=== PATIENT | male | born 1965 | race American Indian/Alaskan Native ===

== ENCOUNTER 2016-08-08 06:00 | Emergency (ER) | payer MEDICARE ==
[2016-08-08] MEDS ORDERED: TORADOL ONE (08:04)
[2016-08-08] MEDS ORDERED: DECADRON ONE (08:04)
== END 2016-08-08 08:40 | disposition home or self-care (01) ==
LOC: ED 06:00
DX: M79.642 Pain in left hand (principal); M79.89 Other specified soft tissue disorders; I10 Essential (primary) hypertension; E11.9 Type 2 diabetes mellitus without complications; Z87.39 Personal history of other diseases of the musculoskeletal system and connective tissue
CPT/HCPCS: 99282; J1100; J1885

== ENCOUNTER 2016-11-06 09:56 | Emergency (ER) | payer MEDICARE ==
[2016-11-06 10:09] VITALS: BP 129/86
--- NOTE | 2016-11-06 10:20 | Emergency Department Report ---
Entered by ADRIENNE IZQUIERDO, acting as scribe for AYESHA BARCLAY PA. Chief Complaint: Extremity Problem,Nontraumatic Stated Complaint: GOUT R ELBOW Time Seen by Provider: 11/06/16 10:07 - HPI History of Present Illness: 51 y/o male presents with right elbow pain from gout that started at 0300 this morning. Pt notes eating a steak 2 days ago. 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 PCP is Dr. Patton. - ROS Review of Systems: as noted in HPI - Exam Vital Signs: Vital Signs 11/06/16 10:07 Temperature 97.9 F Pulse Rate 97 H Respiratory 17 Rate Blood Pressure 129/86 O2 Sat by Pulse 96 Oximetry Physical Exam: General: 51 y/o male in no acute distress. Well-developed, well-nourished. CV: Regular rate and rhythm. No murmurs rubs or gallops. Lungs: Clear to auscultation bilaterally. Abdomen: No tenderness to palpation. No guarding or rebound tenderness. Normal bowel sounds. Mini Neuro: Alert and oriented 3. Musculoskeletal: patient had tenderness to the right the elbow with edema, limited ROM due to pain. MSE screening note: Focused history and physical exam performed. Due to findings the following was ordered: ED Medical Decision Making - Medical Decision Making CBC, CMP and uric acid were ordered. - Differential Diagnosis GOUT, PSEUDOGOUT, OSTEAORTHRITIS, CELLULITIS ED Disposition for MSE Condition: Stable This documentation as recorded by the scribe,ADRIENNE IZQUIERDO,accurately reflects the service I personally performed and the decisions made by fl,AYESHA BARCLAY PA.
[2016-11-06 10:56] LABS: Basophils % (Auto) 0.2 % (0.0-1.8); Eosinophils % (Auto) 2.2 % (0.0-4.3); Hematocrit 35.7 % (35.5-45.6); Hemoglobin 12.1 gm/dl (11.8-15.2); Mean Corpuscular HGB Conc 34 % (32-34); Mean Corpuscular Hemoglobin 34 pg (28-32); Mean Corpuscular Volume 100 fl (84-94); Platelet Count 261 K/mm3 (140-440); Red Blood Count 3.59 M/mm3 (3.65-5.03); Red Cell Distribution Width 13.9 % (13.2-15.2); White Blood Count 8.9 K/mm3 (4.5-11.0)
[2016-11-06 11:05] LABS: Alanine Aminotransferase 44 units/L (7-56); Albumin 4.3 g/dL (3.9-5); Albumin/Globulin Ratio 1.3 %; Alkaline Phosphatase 85 units/L (35-129); Anion Gap 21 mmol/L; BUN/Creatinine Ratio 12.72; Blood Urea Nitrogen 14 mg/dL (9-20); Calcium 9.7 mg/dL (8.4-10.2); Carbon Dioxide 18 mmol/L (22-30); Chloride 100.1 mmol/L (98-107); Glucose 129 mg/dL (75-100); Potassium 4.4 mmol/L (3.6-5.0); Sodium 135 mmol/L (137-145); Total Protein 7.7 g/dL (6.3-8.2); Uric Acid 7.5 mg/dL (3.5-7.6)
[2016-11-06] MEDS ORDERED: TORADOL IM ONE (12:00)
--- NOTE | 2016-11-06 12:03 | Emergency Department Report ---
ED General Adult HPI - General Chief complaint: Recheck/Abnormal Lab/Rx Stated complaint: GOUT R ELBOW Time Seen by Provider: 11/06/16 11:59 Source: patient Mode of arrival: Ambulatory Limitations: No Limitations - History of Present Illness Initial comments: 51-year-old known diabetic and hypertensive and gout history comes in with complaint of gout flareup right elbow since 0 300 this morning. Patient complains of the pain is warm to the right elbow denies any injuries. He does admit to having a steak on Saturday on the grill in that she see what elevates his uric acid. Patient reports he did go to his primary care yesterday which is Saturday and had a uric acid test which came 9.2. Patient reports that he is currently taking allopurinol and colchicine as prescribed. - Related Data Home Medications Medication Instructions Recorded Confirmed Last Taken Lisinopril [Zestril TAB] 30 mg PO QDAY 08/18/14 05/04/16 02/08/16 08:00 Previous Rx's Medication Instructions Recorded Last Taken Type Indomethacin Sr (Nf) [Indocin Sr 75 mg PO Q12HR #60 capsule.er 05/12/15 08:00 Rx (Nf)] Colchicine [Colcrys] 0.6 mg PO BID #20 tab 02/09/16 Unknown Rx Propranolol [Inderal] 10 mg PO BID #60 tablet 02/09/16 Unknown Rx amLODIPine [Norvasc] 10 mg PO QDAY #30 tablet 02/09/16 Unknown Rx HYDROcodone/APAP 5-325 [[place] 1 each PO Q6HR PRN #16 tablet 05/04/16 Unknown Rx 5/325] predniSONE [Deltasone] 10 mg PO QDAY #5 tab 06/06/16 Unknown Rx Indomethacin [Indocin] 25 mg PO Q8H #24 capsule 11/06/16 Unknown Rx Prednisone [predniSONE 5 mg (6-Day 5 mg PO .TAPER #1 tab.ds.pk 11/06/16 Unknown Rx Pack, 21 Tabs)] Allergies Allergy/AdvReac Type Severity Reaction Status Date / Time shellfish derived Allergy Rash Verified 11/06/16 10:09 ED Review of Systems ROS: Stated complaint: GOUT R ELBOW Other details as noted in HPI Constitutional: denies: chills, fever Eyes: denies: eye pain, eye discharge, vision change ENT: as per HPI Respiratory: denies: cough, shortness of breath, wheezing Cardiovascular: denies: chest pain, palpitations Endocrine: no symptoms reported Gastrointestinal: denies: abdominal pain, nausea, diarrhea Genitourinary: denies: urgency, dysuria Musculoskeletal: joint swelling (right elbow), arthralgia (right elbow) ED Past Medical Hx - Past Medical History Hx Hypertension: Yes Hx Psychiatric Treatment: Yes (anxiety) Additional medical history: GOUT - Surgical History Additional Surgical History: tonsillectomy - Social History Smoking Status: Never Smoker Substance Use Type: None - Medications Home Medications: Home Medications Medication Instructions Recorded Confirmed Last Taken Type Lisinopril [Zestril TAB] 30 mg PO QDAY 08/18/14 05/04/16 02/08/16 08:00 History Indomethacin Sr (Nf) [Indocin Sr 75 mg PO Q12HR #60 capsule.er 05/12/1501/19/16 08:00 Rx (Nf)] Colchicine [Colcrys] 0.6 mg PO BID #20 tab 02/09/16 05/04/16 Unknown Rx Propranolol [Inderal] 10 mg PO BID #60 tablet 02/09/16 05/04/16 Unknown Rx amLODIPine [Norvasc] 10 mg PO QDAY #30 tablet 02/09/16 05/04/16 Unknown Rx HYDROcodone/APAP 5-325 [[place] 1 each PO Q6HR PRN #16 tablet 05/04/16 Unknown Rx 5/325] predniSONE [Deltasone] 10 mg PO QDAY #5 tab 06/06/16 Unknown Rx Indomethacin [Indocin] 25 mg PO Q8H #24 capsule 11/06/16 Unknown Rx Prednisone [predniSONE 5 mg (6-Day 5 mg PO .TAPER #1 tab.ds.pk 11/06/16 Unknown Rx Pack, 21 Tabs)] ED Physical Exam - General Limitations: No Limitations General appearance: alert, in no apparent distress - Head Head exam: Present: atraumatic, normocephalic - Eye Eye exam: Present: normal appearance - ENT ENT exam: Present: mucous membranes moist - Neck Neck exam: Present: normal inspection - Expanded Upper Extremity Exam Right Elbow exam: Present: tenderness, swelling, erythema, pain w/ pronation/ supination, tenderness over radial head Forearm Wrist exam: Present: normal inspection, full ROM. Absent: tenderness ED Course Vital Signs 11/06/16 10:07 Temperature 97.9 F Pulse Rate 97 H Respiratory 17 Rate Blood Pressure 129/86 O2 Sat by Pulse 96 Oximetry - Reevaluation(s) Reevaluation #1: 11/06/16 12:50 Patient reports that he feels much better from having the Demerol injection and Toradol. ED Medical Decision Making - Lab Data Result diagrams: 11/06/16 10:30 11/06/16 10:30 - Medical Decision Making Patient has been evaluated by this provider fast track. Discussed the patient was given a Toradol injection as well as Solu-Medrol injection for pain relief. Discussed with patient follow up with his primary care provider. In the next 3-5 days. Discussed the patient to continue with the allopurinol in the colchicine as prescribed by his PCP patient verbalized understanding Critical care attestation.: If time is entered above; I have spent that time in minutes in the direct care of this critically ill patient, excluding procedure time. ED Disposition Clinical Impression: Gout attack Qualifiers: Gout site: elbow Gout etiology: unspecified cause Laterality: right Qualified Code(s): M10.9 - Gout, unspecified Disposition: DISCHARGED TO HOME OR SELFCARE Is pt being admited?: No Does the pt Need Aspirin: No Condition: Stable Instructions: Acute Gouty Arthritis (ED) Additional Instructions: Take medication as prescribed. Do not start the steroid until tomorrow. Follow -up which her primary care provider in 3-5 days Prescriptions: Indomethacin [Indocin] 25 mg PO Q8H #24 capsule Prednisone [predniSONE 5 mg (6-Day Pack, 21 Tabs)] 5 mg PO .TAPER #1 tab.ds.pk Referrals: your,provider [Other] - 3-5 Days Forms: Work/School Release Form(ED)
== END 2016-11-06 12:54 | disposition home or self-care (01) ==
LOC: ED 09:56
DX: M10.9 Gout, unspecified (principal); M25.421 Effusion, right elbow; I10 Essential (primary) hypertension; Z91.013 Allergy to seafood
CPT/HCPCS: 36415; 80053; 84550; 85025; 96372; 99283; J1885; J2920

== ENCOUNTER 2016-12-02 07:38 | Emergency (ER) | payer MEDICARE ==
[2016-12-02 07:55] VITALS: BP 122/77
[2016-12-02] MEDS ORDERED: DECADRON IM ONE (10:28)
[2016-12-02] MEDS ORDERED: NORCO 10/325 PO ONE (10:29)
--- NOTE | 2016-12-02 14:00 | Emergency Department Report ---
Entered by SAMEER ROSADO, acting as scribe for UMA MCCRAY PA. ED Lower Extremity HPI - General Chief Complaint: Pain General Stated Complaint: LT KNEE AND RT FOOT PAIN SWELLING Source: patient Mode of arrival: Ambulatory Limitations: Physical Limitation - History of Present Illness Initial Comments: 51 y/o male with a PMHx of anxiety, HTN, chronic back pain, and gout c/o an acute gout flare-up that began 3 days ago. Rates pain a 10/10 in severity. Patient states this acute gout flare-up feels similar to his past gout episodes. Associated symptoms include left knee pain, right foot pain, and swelling, but he denies numbness and tingling. Notes pain worsens with movement , weight bearing, and palpation. Took prescribed Colchacine with no relief. Patient is currently ambulatory with a cane. NKDA. MCCULLOUGH Complaint: other (Acute gout flare-up) Onset/Timin -: days(s) Injury: Knee: Left, Foot: Right Type of Injury: other (Hx of gout) Place: home Severity: severe Severity scale (0 -10): 10 Improves With: nothing Worsens With: weight bearing, movement, palpation Context: other (Hx of gout) Associated Symptoms: swelling (left knee and right foot), able to partially bear weight, ambulatory. denies: numbness, tingling - Related Data Home Medications Medication Instructions Recorded Confirmed Last Taken Lisinopril [Zestril TAB] 30 mg PO QDAY 08/18/14 05/04/16 02/08/16 08:00 Previous Rx's Medication Instructions Recorded Last Taken Type Indomethacin Sr (Nf) [Indocin Sr 75 mg PO Q12HR #60 capsule.er 05/12/15 08:00 Rx (Nf)] Colchicine [Colcrys] 0.6 mg PO BID #20 tab 02/09/16 Unknown Rx Propranolol [Inderal] 10 mg PO BID #60 tablet 02/09/16 Unknown Rx amLODIPine [Norvasc] 10 mg PO QDAY #30 tablet 02/09/16 Unknown Rx HYDROcodone/APAP 5-325 [[place] 1 each PO Q6HR PRN #16 tablet 05/04/16 Unknown Rx 5/325] predniSONE [Deltasone] 10 mg PO QDAY #5 tab 11/30/16 Unknown Rx Indomethacin [Indocin] 25 mg PO Q8H #24 capsule 11/06/16 Unknown Rx Prednisone [predniSONE 5 mg (6-Day 5 mg PO .TAPER #1 tab.ds.pk 11/06/16 Unknown Rx Pack, 21 Tabs)] Colchicine 0.6 mg PO QDAY #20 capsule 12/02/16 Unknown Rx HYDROcodone/APAP 5-325 [[place] 1 each PO Q4HR PRN #12 tablet 12/02/16 Unknown Rx 5/325] Prednisone [predniSONE 10 mg 10 mg PO .TAPER #1 tab.ds.pk 12/02/16 Unknown Rx (6-Day Pack, 21 Tabs)] Allergies Allergy/AdvReac Type Severity Reaction Status Date / Time shellfish derived Allergy Rash Verified 11/06/16 10:09 ED Review of Systems Comment: All other systems reviewed and negative Constitutional: no symptoms reported. denies: chills, fever, other (tingling) Eyes: denies: eye pain, eye discharge, vision change ENT: denies: ear pain, throat pain Respiratory: no symptoms reported. denies: cough, orthopnea, shortness of breath, SOB with exertion, SOB at rest, stridor, wheezing Cardiovascular: denies: chest pain, palpitations, dyspnea on exertion, orthopnea , edema, syncope Endocrine: no symptoms reported Gastrointestinal: denies: abdominal pain, nausea, diarrhea Genitourinary: denies: urgency, dysuria Musculoskeletal: joint swelling (left knee and right foot), arthralgia (left knee and right foot). denies: back pain, myalgia Skin: denies: rash, lesions Neurological: denies: headache, weakness, numbness, paresthesias Psychiatric: denies: anxiety, depression Hematological/Lymphatic: denies: easy bleeding, easy bruising ED Past Medical Hx - Past Medical History Previous Medical History?: Yes Hx Hypertension: Yes Hx Psychiatric Treatment: Yes (anxiety) Additional medical history: GOUT, Chronic back pain - Surgical History Past Surgical History?: Yes Additional Surgical History: tonsillectomy - Social History Smoking Status: Never Smoker Substance Use Type: Alcohol, Prescribed - Medications Home Medications: Home Medications Medication Instructions Recorded Confirmed Last Taken Type Lisinopril [Zestril TAB] 30 mg PO QDAY 08/18/14 05/04/16 02/08/16 08:00 History Indomethacin Sr (Nf) [Indocin Sr 75 mg PO Q12HR #60 capsule.er 05/12/1501/19/16 08:00 Rx (Nf)] Colchicine [Colcrys] 0.6 mg PO BID #20 tab 02/09/16 05/04/16 Unknown Rx Propranolol [Inderal] 10 mg PO BID #60 tablet 02/09/16 05/04/16 Unknown Rx amLODIPine [Norvasc] 10 mg PO QDAY #30 tablet 02/09/16 05/04/16 Unknown Rx HYDROcodone/APAP 5-325 [[place] 1 each PO Q6HR PRN #16 tablet 05/04/16 Unknown Rx 5/325] predniSONE [Deltasone] 10 mg PO QDAY #5 tab 06/06/16 Unknown Rx Indomethacin [Indocin] 25 mg PO Q8H #24 capsule 11/06/16 Unknown Rx Prednisone [predniSONE 5 mg (6-Day 5 mg PO .TAPER #1 tab.ds.pk 11/06/16 Unknown Rx Pack, 21 Tabs)] Colchicine 0.6 mg PO QDAY #20 capsule 12/02/16 Unknown Rx HYDROcodone/APAP 5-325 [[place] 1 each PO Q4HR PRN #12 tablet 12/02/16 Unknown Rx 5/325] Prednisone [predniSONE 10 mg 10 mg PO .TAPER #1 tab.ds.pk 12/02/16 Unknown Rx (6-Day Pack, 21 Tabs)] ED Physical Exam - General Limitations: Physical Limitation General appearance: alert, in no apparent distress - Head Head exam: Present: atraumatic, normocephalic - Eye Eye exam: Present: normal appearance, EOMI Pupils: Present: normal accommodation - ENT ENT exam: Present: normal exam, mucous membranes moist - Neck Neck exam: Present: normal inspection, full ROM. Absent: tenderness, lymphadenopathy - Respiratory Respiratory exam: Present: normal lung sounds bilaterally. Absent: respiratory distress, wheezes, rales, rhonchi, stridor, accessory muscle use, decreased breath sounds - Cardiovascular Cardiovascular Exam: Present: regular rate, normal rhythm, normal heart sounds. Absent: systolic murmur, diastolic murmur, rubs, gallop - GI/Abdominal GI/Abdominal exam: Present: soft, normal bowel sounds - Expanded Lower Extremity Exam Left Hip exam: Present: tenderness, swelling, erythema. Absent: ecchymosis, deformity, crepidus, dislocation, external rotation, internal rotation, shortening Upper Leg exam: Present: normal inspection, full ROM Knee exam: Present: full ROM (limited flexion motion due to left knee pain), tenderness (warm to touch), swelling, erythema, full knee extension. Absent: abrasion, laceration, ecchymosis, deformity, crepidus, dislocation, effusion Lower Leg exam: Present: normal inspection, full ROM Ankle exam: Present: normal inspection, full ROM Foot/Toe exam: Present: normal inspection, full ROM Neuro vascular tendon exam: Present: no vascular compromise. Absent: pulse deficit, abnormal cap refill, motor deficit, sensory deficit, tendon deficit, extremity cold to touch, pallor, abnormal 2-point discrimination Gait: Positive: observed and limited by pain (patient is ambulatory with a cane) Right Hip exam: Present: normal inspection, full ROM Upper Leg exam: Present: normal inspection, full ROM Knee exam: Present: normal inspection, full ROM Lower Leg exam: Present: normal inspection, full ROM Ankle exam: Present: full ROM (limited dorsiflexion and plantar flexion motion due to right foot/ankle pain), tenderness (warm to touch), swelling, erythema. Absent: abrasion, laceration, ecchymosis, deformity, crepidus, dislocation Foot/Toe exam: Present: full ROM (limited dorsiflexion and plantar flexion motion due to right foot/ankle pain), tenderness (right dorsal forefoot tenderness), swelling (mild dorsal forefoot swelling), erythema. Absent: abrasion, laceration, ecchymosis, deformity, crepidus, dislocation, amputation, puncture wound, calcaneal tenderness Neuro vascular tendon exam: Present: no vascular compromise. Absent: pulse deficit, abnormal cap refill, motor deficit, sensory deficit, tendon deficit, extremity cold to touch, pallor, abnormal 2-point discrimination Gait: Positive: observed and limited by pain (patient is ambulatory with a cane) - Back Exam Back exam: Present: normal inspection, full ROM - Neurological Exam Neurological exam: Present: alert, oriented X3 - Psychiatric Psychiatric exam: Present: normal affect, normal mood - Skin Skin exam: Present: warm, dry, intact. Absent: rash ED Course Vital Signs 12/02/16 07:51 Temperature 98.5 F Pulse Rate 109 H Respiratory 20 Rate Blood Pressure 122/77 O2 Sat by Pulse 95 Oximetry ED Disposition Clinical Impression: Gout attack, Medication refill, Gout Disposition: DISCHARGED TO HOME OR SELFCARE Is pt being admited?: No Condition: Stable Instructions: Acute Gouty Arthritis (ED) Prescriptions: Colchicine 0.6 mg PO QDAY #20 capsule HYDROcodone/APAP 5-325 [[place] 5/325] 1 each PO Q4HR PRN #12 tablet PRN Reason: Pain Prednisone [predniSONE 10 mg (6-Day Pack, 21 Tabs)] 10 mg PO .TAPER #1 tab.ds.pk Referrals: PRIMARY CARE,MD [Primary Care Provider] - 3-5 Days This documentation as recorded by the ALONZO kahn JASMINE,accurately reflects the service I personally performed and the decisions made by ,UMA MCCRAY PA.
== END 2016-12-02 11:05 | disposition home or self-care (01) ==
LOC: ED 07:38
DX: M10.9 Gout, unspecified (principal); I10 Essential (primary) hypertension; Z91.013 Allergy to seafood
CPT/HCPCS: 96372; 99282; J1100

== ENCOUNTER 2017-03-09 10:08 | Emergency (ER) | payer MEDICARE ==
[2017-03-09] MEDS ORDERED: ZOFRAN IV ONE (12:36)
[2017-03-09] MEDS ORDERED: MORPHINE IV ONE (12:36)
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
[2017-03-09] MEDS ORDERED: FLEXERIL PO ONE (14:10)
[2017-03-09] MEDS ORDERED: NORCO 10/325 PO ONE (14:10)
[2017-03-09 14:44] VITALS: BP 124/74
== END 2017-03-09 14:44 | disposition left against medical advice (07) ==
LOC: ED 10:08
DX: M54.2 Cervicalgia (principal); R22.1 Localized swelling, mass and lump, neck; I10 Essential (primary) hypertension; F41.9 Anxiety disorder, unspecified; G89.29 Other chronic pain; Z91.013 Allergy to seafood; V59.88XA Occupant (driver) (passenger) of pick-up truck or van injured in other specified transport accidents, initial encounter; Y92.488 Other paved roadways as the place of occurrence of the external cause; Y93.89 Activity, other specified; Y99.8 Other external cause status
CPT/HCPCS: 72040; 99283; J2270; J2405

== ENCOUNTER 2017-08-18 08:12 | Emergency (ER) | payer MEDICARE ==
[2017-08-18 08:22] VITALS: BP 112/79
[2017-08-18] MEDS ORDERED: MORPHINE IM ONE (10:49)
--- NOTE | 2017-08-18 10:57 | Emergency Department Report ---
Chief Complaint: Extremity Injury, Upper Stated Complaint: GOUT LEFT ELBOW Time Seen by Provider: 08/18/17 10:48 - HPI History of Present Illness: Pt is a 52 yo male who presents with pain in his left elbow, left hand , and left knee due to gout. Pt states that he was at [facility] and was treated 2 days ago with Prednisone and Morphine in the Ed . Pt states that he put his prescription in at [facility] but it is closed today and he can't get his meds so he is here for pain medications. - Exam Vital Signs: Vital Signs 08/18/17 08:16 Temperature 98.1 F Pulse Rate 93 H Respiratory 18 Rate Blood Pressure 112/79 O2 Sat by Pulse 96 Oximetry PE: General: awake alert in no acute distress; Ext: l;eft hand with edema, warmth, left elbow with warmth, ; cap refill less than2 sec MSE screening note: Focused history and physical exam performed. Due to findings the following was ordered:pain meds, steroid ED Disposition for MSE Clinical Impression: Gout Disposition: DC- TO HOME OR SELFCARE Is pt being admited?: No Does the pt Need Aspirin: No Condition: Good Instructions: Acute Gouty Arthritis (ED) Prescriptions: Colchicine 0.6 mg PO QDAY #20 capsule Referrals: PRIMARY CARE, [Primary Care Provider] - 3-5 Days Time of Disposition: 11:02
[2017-08-18] MEDS ORDERED: DELTASONE PO ONE (10:59)
== END 2017-08-18 11:28 | disposition home or self-care (01) ==
LOC: ED 08:12
DX: M10.9 Gout, unspecified (principal); Z91.013 Allergy to seafood
CPT/HCPCS: 96372; 99282; J2270; J7512

== ENCOUNTER 2018-02-04 14:10 | Emergency (ER) | payer MEDICARE ==
[2018-02-04 14:16] VITALS: BP 157/93
[2018-02-04] MEDS ORDERED: MOTRIN PO ONE (16:52)
[2018-02-04] MEDS ORDERED: DECADRON IM ONE (16:52)
--- NOTE | 2018-02-04 16:56 | Emergency Department Report ---
ED Lower Extremity HPI - General Chief Complaint: Extremity Injury, Lower Stated Complaint: GOUT Time Seen by Provider: 02/04/18 16:48 Source: patient Mode of arrival: Ambulatory Limitations: No Limitations - History of Present Illness Initial Comments: This is a 52-year-old male nontoxic, well nourished in appearance, no acute signs of distress presents to the ED with c/o of acute on chronic gout of right knee. Patient denies any trauma. Patient denies any numbness, tingling, fever , chills, nausea, vomiting, chest pain, shortness of breath, headache, stiff neck. Patient denies any joint redness. Patient denies decreased range of motion. Patient stated has decreased gait due to pain. Patient denies any allergies. PMH includes gout. PAtient stated he is out of his colchicine medication. -: week(s) (1) Injury: Knee: Right Severity: mild Severity scale (0 -10): 8 Improves With: nothing Worsens With: nothing Associated Symptoms: swelling, able to partially bear weight, ambulatory. denies: snap/pop sensation, numbness, tingling, unable to bear weight - Related Data Home Medications Medication Instructions Recorded Confirmed Last Taken Lisinopril [Zestril TAB] 30 mg PO QDAY 08/18/14 05/04/16 02/08/16 08:00 Previous Rx's Medication Instructions Recorded Last Taken Type Propranolol [Inderal] 10 mg PO BID #60 tablet 02/09/16 Unknown Rx amLODIPine [Norvasc] 10 mg PO QDAY #30 tablet 02/09/16 Unknown Rx HYDROcodone/APAP 5-325 [[place] 1 each PO Q4HR PRN #12 tablet 12/02/16 Unknown Rx 5/325] Prednisone [predniSONE 10 mg 10 mg PO .TAPER #1 tab.ds.pk 12/02/16 Unknown Rx (6-Day Pack, 21 Tabs)] Colchicine 0.6 mg PO QDAY #20 capsule 08/18/17 Unknown Rx Colchicine 0.6 mg PO DAILY #20 capsule 02/04/18 Unknown Rx Ibuprofen [Motrin] 600 mg PO Q8H PRN #30 tablet 02/04/18 Unknown Rx Prednisone [predniSONE 10 mg 10 mg PO .TAPER #1 tab.ds.pk 02/04/18 Unknown Rx (6-Day Pack, 21 Tabs)] Allergies Allergy/AdvReac Type Severity Reaction Status Date / Time shellfish derived Allergy Rash Verified 02/04/18 14:14 ED Review of Systems ROS: Stated complaint: GOUT Other details as noted in HPI Constitutional: denies: chills, fever Eyes: denies: eye pain, eye discharge, vision change ENT: denies: ear pain, throat pain Respiratory: denies: cough, shortness of breath, wheezing Cardiovascular: denies: chest pain, palpitations Endocrine: no symptoms reported Gastrointestinal: denies: abdominal pain, nausea, diarrhea Genitourinary: denies: urgency, dysuria Musculoskeletal: denies: back pain, joint swelling, arthralgia Skin: denies: rash, lesions Neurological: denies: headache, weakness, paresthesias Psychiatric: denies: anxiety, depression Hematological/Lymphatic: denies: easy bleeding, easy bruising ED Past Medical Hx - Past Medical History Hx Hypertension: Yes Hx Diabetes: Yes Hx Kidney Stones: Yes Hx Psychiatric Treatment: Yes (anxiety) Additional medical history: GOUT, Chronic back pain - Surgical History Additional Surgical History: tonsillectomy - Social History Smoking Status: Never Smoker Substance Use Type: None - Medications Home Medications: Home Medications Medication Instructions Recorded Confirmed Last Taken Type Lisinopril [Zestril TAB] 30 mg PO QDAY 08/18/14 05/04/16 02/08/16 08:00 History Propranolol [Inderal] 10 mg PO BID #60 tablet 02/09/16 05/04/16 Unknown Rx amLODIPine [Norvasc] 10 mg PO QDAY #30 tablet 02/09/16 05/04/16 Unknown Rx HYDROcodone/APAP 5-325 [[place] 1 each PO Q4HR PRN #12 tablet 12/02/16 Unknown Rx 5/325] Prednisone [predniSONE 10 mg 10 mg PO .TAPER #1 tab.ds.pk 12/02/16 Unknown Rx (6-Day Pack, 21 Tabs)] Colchicine 0.6 mg PO QDAY #20 capsule 08/18/17 Unknown Rx Colchicine 0.6 mg PO DAILY #20 capsule 02/04/18 Unknown Rx Ibuprofen [Motrin] 600 mg PO Q8H PRN #30 tablet 02/04/18 Unknown Rx Prednisone [predniSONE 10 mg 10 mg PO .TAPER #1 tab.ds.pk 02/04/18 Unknown Rx (6-Day Pack, 21 Tabs)] ED Physical Exam - General Limitations: No Limitations General appearance: alert, in no apparent distress - Head Head exam: Present: atraumatic, normocephalic - Eye Eye exam: Present: normal appearance - ENT ENT exam: Present: mucous membranes moist - Neck Neck exam: Present: normal inspection - Respiratory Respiratory exam: Present: normal lung sounds bilaterally. Absent: respiratory distress - Cardiovascular Cardiovascular Exam: Present: regular rate, normal rhythm. Absent: systolic murmur, diastolic murmur, rubs, gallop - GI/Abdominal GI/Abdominal exam: Present: soft, normal bowel sounds - Rectal Rectal exam: Present: deferred - Extremities Exam Extremities exam: Present: normal inspection, full ROM, tenderness, normal capillary refill. Absent: joint swelling, calf tenderness - Expanded Lower Extremity Exam Right Hip exam: Present: normal inspection, full ROM. Absent: tenderness, swelling Upper Leg exam: Present: normal inspection, full ROM. Absent: tenderness, swelling Knee exam: Present: normal inspection, full ROM, tenderness, swelling, full knee extension. Absent: abrasion, laceration, ecchymosis, deformity, crepidus, dislocation, erythema, effusion, pain w/ pronation/supination, posterior draw sign, pain/laxity with valgus, pain/laxity with varus Lower Leg exam: Present: normal inspection, full ROM. Absent: tenderness, swelling, Jyothi's sign Ankle exam: Present: normal inspection, full ROM. Absent: tenderness, swelling Foot/Toe exam: Present: normal inspection, full ROM. Absent: tenderness, swelling Neuro vascular tendon exam: Present: no vascular compromise. Absent: pulse deficit, abnormal cap refill, motor deficit, sensory deficit, tendon deficit, extremity cold to touch, pallor, abnormal 2-point discrimination, decreased fine /light touch, foot drop, peroneal nerve deficit, significant pain with passive ROM of distal joint Gait: Positive: observed and limited by pain - Back Exam Back exam: Present: normal inspection, full ROM - Neurological Exam Neurological exam: Present: alert, oriented X3 - Psychiatric Psychiatric exam: Present: normal affect, normal mood - Skin Skin exam: Present: warm, dry, intact, normal color. Absent: rash ED Course Vital Signs 02/04/18 14:14 Temperature 97.9 F Pulse Rate 101 H Respiratory 20 Rate Blood Pressure 157/93 O2 Sat by Pulse 96 Oximetry - Reevaluation(s) Reevaluation #1: 02/04/18 16:57 Patient is speaking in full sentences with no signs of distress noted. ED Lower Extremity MDM - Medical Decision Making This is a 52-year-old male that presents with gout. Patient is stable and was examined by me. There is no ecchymosis, no joint redness. Not warm to touch. No signs of cellulites present. Patient received Decadron 10 mg IM. Patient is discharged with colchicine and prednisone. Patient was instructed to RICE therapy. Patient received Motrin for pain. Patient is discharged with Motrin. At time of discharge, the patient does not seem toxic or ill in appearance. No acute signs of distress noted. Patient agrees to discharge treatment plan of care. No further questions noted by the patient. Critical care attestation.: If time is entered above; I have spent that time in minutes in the direct care of this critically ill patient, excluding procedure time. ED Disposition Clinical Impression: Gout flare Qualifiers: Gout site: knee Gout etiology: unspecified cause Laterality: right Qualified Code(s): M10.9 - Gout, unspecified Disposition: DC-01 TO HOME OR SELFCARE Is pt being admited?: No Does the pt Need Aspirin: No Condition: Stable Instructions: Acute Gouty Arthritis (ED) Additional Instructions: Follow-up with a primary care doctor in 3-5 days or if symptoms worsen and continue return to emergency room as soon as possible. Prescriptions: Colchicine 0.6 mg PO DAILY #20 capsule Ibuprofen [Motrin] 600 mg PO Q8H PRN #30 tablet PRN Reason: Pain Prednisone [predniSONE 10 mg (6-Day Pack, 21 Tabs)] 10 mg PO .TAPER #1 tab.ds.pk Referrals: LEIA TIPTON JR, MD [Primary Care Provider] - 3-5 Days PRIMARY CARE, [Referring] - 3-5 Days [facility] [place] [Outside] - 3-5 Days [facility] [Outside] - 3-5 Days Forms: Work/School Release Form(ED)
== END 2018-02-04 19:13 | disposition home or self-care (01) ==
LOC: ED 14:10
DX: M10.061 Idiopathic gout, right knee (principal); I10 Essential (primary) hypertension; E11.9 Type 2 diabetes mellitus without complications; Z87.442 Personal history of urinary calculi; F41.9 Anxiety disorder, unspecified; M54.9 Dorsalgia, unspecified; G89.29 Other chronic pain; Z90.89 Acquired absence of other organs; Z91.013 Allergy to seafood
CPT/HCPCS: 96372; 99282; J1100

== ENCOUNTER 2018-03-08 08:36 | Emergency (ER) | payer MEDICARE ==
[2018-03-08 08:55] VITALS: BP 130/70
[2018-03-08] MEDS ORDERED: DECADRON IM ONE (10:29)
--- NOTE | 2018-03-08 10:36 | Emergency Department Report ---
ED ENT HPI - General Chief complaint: Sore Throat Stated complaint: SWOLLEN THROAT Time Seen by Provider: 03/08/18 10:24 Source: patient Mode of arrival: Ambulatory Limitations: No Limitations - History of Present Illness Initial comments: Patient is a 52-year-old -[place] male past history of sleep apnea snores quite a bit at night who woke up this morning with sensation symptoms In his throat. Patient states he's had uvulitis in the past. Patient feels no pain when he swallows states dysmorphic irritating gagging-type feeling. Patient denies any fevers chills nausea vomiting headache sinus congestion at this time. - Related Data Home Medications Medication Instructions Recorded Confirmed Last Taken Lisinopril [Zestril TAB] 30 mg PO QDAY 08/18/14 05/04/16 02/08/16 08:00 Previous Rx's Medication Instructions Recorded Last Taken Type Propranolol [Inderal] 10 mg PO BID #60 tablet 02/09/16 Unknown Rx amLODIPine [Norvasc] 10 mg PO QDAY #30 tablet 02/09/16 Unknown Rx HYDROcodone/APAP 5-325 [[place] 1 each PO Q4HR PRN #12 tablet 12/02/16 Unknown Rx 5/325] Prednisone [predniSONE 10 mg 10 mg PO .TAPER #1 tab.ds.pk 12/02/16 Unknown Rx (6-Day Pack, 21 Tabs)] Colchicine 0.6 mg PO QDAY #20 capsule 08/18/17 Unknown Rx Colchicine 0.6 mg PO DAILY #20 capsule 02/04/18 Unknown Rx Ibuprofen [Motrin] 600 mg PO Q8H PRN #30 tablet 02/04/18 Unknown Rx Prednisone [predniSONE 10 mg 10 mg PO .TAPER #1 tab.ds.pk 02/04/18 Unknown Rx (6-Day Pack, 21 Tabs)] Azithromycin [Zithromax Z-JESS] 250 mg PO DAILY #6 tablet 03/08/18 Unknown Rx predniSONE [Deltasone] 10 mg PO QDAY #5 tab 03/08/18 Unknown Rx Allergies Allergy/AdvReac Type Severity Reaction Status Date / Time shellfish derived Allergy Rash Verified 02/04/18 14:14 ED Dental HPI - General Chief complaint: Sore Throat Stated complaint: SWOLLEN THROAT Time Seen by Provider: 03/08/18 10:24 Source: patient Mode of arrival: Ambulatory Limitations: No Limitations - Related Data Home Medications Medication Instructions Recorded Confirmed Last Taken Lisinopril [Zestril TAB] 30 mg PO QDAY 08/18/14 05/04/16 02/08/16 08:00 Previous Rx's Medication Instructions Recorded Last Taken Type Propranolol [Inderal] 10 mg PO BID #60 tablet 02/09/16 Unknown Rx amLODIPine [Norvasc] 10 mg PO QDAY #30 tablet 02/09/16 Unknown Rx HYDROcodone/APAP 5-325 [[place] 1 each PO Q4HR PRN #12 tablet 12/02/16 Unknown Rx 5/325] Prednisone [predniSONE 10 mg 10 mg PO .TAPER #1 tab.ds.pk 12/02/16 Unknown Rx (6-Day Pack, 21 Tabs)] Colchicine 0.6 mg PO QDAY #20 capsule 08/18/17 Unknown Rx Colchicine 0.6 mg PO DAILY #20 capsule 02/04/18 Unknown Rx Ibuprofen [Motrin] 600 mg PO Q8H PRN #30 tablet 02/04/18 Unknown Rx Prednisone [predniSONE 10 mg 10 mg PO .TAPER #1 tab.ds.pk 02/04/18 Unknown Rx (6-Day Pack, 21 Tabs)] Azithromycin [Zithromax Z-JESS] 250 mg PO DAILY #6 tablet 03/08/18 Unknown Rx predniSONE [Deltasone] 10 mg PO QDAY #5 tab 03/08/18 Unknown Rx Allergies Allergy/AdvReac Type Severity Reaction Status Date / Time shellfish derived Allergy Rash Verified 02/04/18 14:14 ED Review of Systems ROS: Stated complaint: SWOLLEN THROAT Other details as noted in HPI Comment: All other systems reviewed and negative ED Past Medical Hx - Past Medical History Previous Medical History?: Yes Hx Hypertension: Yes Hx Diabetes: Yes Hx Kidney Stones: Yes Hx Psychiatric Treatment: Yes (anxiety) Additional medical history: GOUT, Chronic back pain, Loud snoring with poss sleep apnea - Surgical History Past Surgical History?: Yes Additional Surgical History: tonsillectomy - Social History Smoking Status: Never Smoker Substance Use Type: Alcohol - Medications Home Medications: Home Medications Medication Instructions Recorded Confirmed Last Taken Type Lisinopril [Zestril TAB] 30 mg PO QDAY 08/18/14 05/04/16 02/08/16 08:00 History Propranolol [Inderal] 10 mg PO BID #60 tablet 02/09/16 05/04/16 Unknown Rx amLODIPine [Norvasc] 10 mg PO QDAY #30 tablet 02/09/16 05/04/16 Unknown Rx HYDROcodone/APAP 5-325 [[place] 1 each PO Q4HR PRN #12 tablet 12/02/16 Unknown Rx 5/325] Prednisone [predniSONE 10 mg 10 mg PO .TAPER #1 tab.ds.pk 12/02/16 Unknown Rx (6-Day Pack, 21 Tabs)] Colchicine 0.6 mg PO QDAY #20 capsule 08/18/17 Unknown Rx Colchicine 0.6 mg PO DAILY #20 capsule 02/04/18 Unknown Rx Ibuprofen [Motrin] 600 mg PO Q8H PRN #30 tablet 02/04/18 Unknown Rx Prednisone [predniSONE 10 mg 10 mg PO .TAPER #1 tab.ds.pk 02/04/18 Unknown Rx (6-Day Pack, 21 Tabs)] Azithromycin [Zithromax Z-JESS] 250 mg PO DAILY #6 tablet 03/08/18 Unknown Rx predniSONE [Deltasone] 10 mg PO QDAY #5 tab 03/08/18 Unknown Rx ED Physical Exam - General Limitations: No Limitations General appearance: alert, in no apparent distress - Head Head exam: Present: atraumatic, normocephalic - Eye Eye exam: Present: normal appearance - ENT ENT exam: Present: mucous membranes moist, other (patient's uvula has some mild edema but is midline there is no tonsillar erythema or exudates present.) - Neck Neck exam: Present: normal inspection - Respiratory Respiratory exam: Present: normal lung sounds bilaterally. Absent: respiratory distress - Cardiovascular Cardiovascular Exam: Present: regular rate, normal rhythm. Absent: systolic murmur, diastolic murmur, rubs, gallop - GI/Abdominal GI/Abdominal exam: Present: soft, normal bowel sounds - Rectal Rectal exam: Present: deferred - Extremities Exam Extremities exam: Present: normal inspection - Back Exam Back exam: Present: normal inspection - Neurological Exam Neurological exam: Present: alert, oriented X3 - Psychiatric Psychiatric exam: Present: normal affect, normal mood - Skin Skin exam: Present: warm, dry, intact, normal color. Absent: rash ED Course Vital Signs 03/08/18 08:51 Temperature 97.6 F Pulse Rate 90 Respiratory 18 Rate Blood Pressure 130/70 O2 Sat by Pulse 96 Oximetry ED Medical Decision Making - Medical Decision Making Patient started on Decadron be discharged home. Critical care attestation.: If time is entered above; I have spent that time in minutes in the direct care of this critically ill patient, excluding procedure time. ED Disposition Clinical Impression: Uvulitis, Sleep apnea Disposition: DC-01 TO HOME OR SELFCARE Is pt being admited?: No Does the pt Need Aspirin: No Condition: Stable Instructions: Uvulitis (ED) Additional Instructions: Please follow up with the included grocery store courtesy clerk who can potentially do a sleep study 40 Referrals: NURA LOYD MD [Staff Physician] - 3-5 Days Time of Disposition: 10:36
== END 2018-03-08 10:44 | disposition home or self-care (01) ==
LOC: ED 08:36
DX: K12.2 Cellulitis and abscess of mouth (principal); G47.30 Sleep apnea, unspecified; I10 Essential (primary) hypertension; E11.9 Type 2 diabetes mellitus without complications; Z87.442 Personal history of urinary calculi; F41.9 Anxiety disorder, unspecified; Z90.89 Acquired absence of other organs; Z91.013 Allergy to seafood
CPT/HCPCS: 96372; 99282; J1100

== ENCOUNTER 2018-03-21 14:50 | Emergency (ER) | payer MEDICARE ==
[2018-03-21 14:59] VITALS: BP 118/71
[2018-03-21] MEDS ORDERED: TORADOL IM ONE (18:04)
[2018-03-21] MEDS ORDERED: NORCO 5/325 PO ONE (18:04)
[2018-03-21] MEDS ORDERED: DECADRON IM ONE (18:04)
--- NOTE | 2018-03-21 18:04 | Emergency Department Report ---
ED Extremity Problem HPI - General Chief complaint: Pain General Stated complaint: GOUT IN BOTH FOOT/BOTH KNEES Time Seen by Provider: 03/21/18 17:26 Source: patient Mode of arrival: Wheelchair Limitations: No Limitations - History of Present Illness Initial comments: This is a 52-year-old male who was been here multiple times for gout flare. He is very noncompliant with his diet. He has been instructed several times regarding diet to prevent gout flareup. He is reported that he drank 12 bottles of Coke yesterday and his gout cleared up again and he is having it to both his feet and kidneys. He reports swelling and pain 04/16 that started. He said he had some colchicine which he took and it helped a little but he still having a lot of pain that is worse with movement and walking. Negative fever or chills. Denies any injury. Patient was last here on 02/04/2018 for similar incident. Patient primary care physician is Dr. Alexy Patton. Complaint: joint swelling, joint paint Onset/Timin -: days(s) Location: bilateral lower extremity, knee (old knees), other History of Same: Yes -: Yes arthralgia, No fever, No associated dyspnea, No associated chest pain Radiation: none Severity scale (0 -10): 10 Quality: aching, constant, other (dropping) Consistency: constant Improves with: medication Worsens with: weight bearing, walking, exertion, palpation Associated Symptoms: arthralgias. denies: chest pain, shortness of breath, fever, myalgias, rash - Related Data Home Medications Medication Instructions Recorded Confirmed Last Taken Lisinopril [Zestril TAB] 30 mg PO QDAY 08/18/14 05/04/16 02/08/16 08:00 Previous Rx's Medication Instructions Recorded Last Taken Type Propranolol [Inderal] 10 mg PO BID #60 tablet 02/09/16 Unknown Rx amLODIPine [Norvasc] 10 mg PO QDAY #30 tablet 02/09/16 Unknown Rx HYDROcodone/APAP 5-325 [[place] 1 each PO Q4HR PRN #12 tablet 12/02/16 Unknown Rx 5/325] Prednisone [predniSONE 10 mg 10 mg PO .TAPER #1 tab.ds.pk 12/02/16 Unknown Rx (6-Day Pack, 21 Tabs)] Colchicine 0.6 mg PO QDAY #20 capsule 08/18/17 Unknown Rx Colchicine 0.6 mg PO DAILY #20 capsule 02/04/18 Unknown Rx Prednisone [predniSONE 10 mg 10 mg PO .TAPER #1 tab.ds.pk 02/04/18 Unknown Rx (6-Day Pack, 21 Tabs)] Azithromycin [Zithromax Z-JESS] 250 mg PO DAILY #6 tablet 03/08/18 Unknown Rx Ibuprofen [Motrin 600 MG tab] 600 mg PO Q8H PRN #30 tablet 03/21/18 Unknown Rx predniSONE [Deltasone] 10 mg PO QDAY #5 tab 03/21/18 Unknown Rx Allergies Allergy/AdvReac Type Severity Reaction Status Date / Time shellfish derived Allergy Rash Verified 02/04/18 14:14 ED Review of Systems ROS: Stated complaint: GOUT IN BOTH FOOT/BOTH KNEES Other details as noted in HPI Constitutional: denies: chills, fever Eyes: denies: vision change Respiratory: denies: cough, shortness of breath, SOB with exertion, SOB at rest , stridor, wheezing Cardiovascular: denies: chest pain, palpitations, edema Gastrointestinal: denies: abdominal pain, nausea, vomiting, diarrhea Musculoskeletal: joint swelling, arthralgia. denies: back pain, myalgia Skin: denies: rash, lesions Neurological: denies: headache, weakness, numbness, paresthesias, confusion, abnormal gait, vertigo ED Past Medical Hx - Past Medical History Previous Medical History?: Yes Hx Hypertension: Yes Hx Diabetes: Yes (borderline) Hx Kidney Stones: Yes Hx Psychiatric Treatment: Yes (anxiety) Additional medical history: GOUT, Chronic back pain, Loud snoring with poss sleep apnea - Surgical History Past Surgical History?: Yes Additional Surgical History: tonsillectomy - Family History Family history: hypertension - Social History Smoking Status: Never Smoker Substance Use Type: None - Medications Home Medications: Home Medications Medication Instructions Recorded Confirmed Last Taken Type Lisinopril [Zestril TAB] 30 mg PO QDAY 08/18/14 05/04/16 02/08/16 08:00 History Propranolol [Inderal] 10 mg PO BID #60 tablet 02/09/16 05/04/16 Unknown Rx amLODIPine [Norvasc] 10 mg PO QDAY #30 tablet 02/09/16 05/04/16 Unknown Rx HYDROcodone/APAP 5-325 [[place] 1 each PO Q4HR PRN #12 tablet 12/02/16 Unknown Rx 5/325] Prednisone [predniSONE 10 mg 10 mg PO .TAPER #1 tab.ds.pk 12/02/16 Unknown Rx (6-Day Pack, 21 Tabs)] Colchicine 0.6 mg PO QDAY #20 capsule 08/18/17 Unknown Rx Colchicine 0.6 mg PO DAILY #20 capsule 02/04/18 Unknown Rx Prednisone [predniSONE 10 mg 10 mg PO .TAPER #1 tab.ds.pk 02/04/18 Unknown Rx (6-Day Pack, 21 Tabs)] Azithromycin [Zithromax Z-JESS] 250 mg PO DAILY #6 tablet 03/08/18 Unknown Rx Ibuprofen [Motrin 600 MG tab] 600 mg PO Q8H PRN #30 tablet 03/21/18 Unknown Rx predniSONE [Deltasone] 10 mg PO QDAY #5 tab 03/21/18 Unknown Rx ED Physical Exam - General Limitations: No Limitations General appearance: alert, in no apparent distress - Head Head exam: Present: atraumatic, normocephalic, normal inspection - Eye Eye exam: Present: normal appearance, PERRL, EOMI Pupils: Present: normal accommodation - ENT ENT exam: Present: normal exam, normal orophraynx, mucous membranes moist - Neck Neck exam: Present: normal inspection, full ROM. Absent: tenderness, lymphadenopathy - Respiratory Respiratory exam: Present: normal lung sounds bilaterally. Absent: respiratory distress, chest wall tenderness - Cardiovascular Cardiovascular Exam: Present: normal rhythm, tachycardia, normal heart sounds. Absent: systolic murmur, diastolic murmur - GI/Abdominal GI/Abdominal exam: Present: soft, normal bowel sounds. Absent: distended, tenderness - Extremities Exam Extremities exam: Present: normal inspection, full ROM, tenderness (tentative palpate to dorsal aspect of both feet more alongside great toe and to both knee. Temperature warm to both feet and knee without any erythema.), normal capillary refill, pedal edema (both feet from gout), joint swelling (both knees anteriorly. no Ballottement. No crepitus), other (No cce. + 2 pulses in all extremities, no neurovascular compromise except he has swelling to both knees without any signs of ligament injury. He also has swelling to both feet alongside his great toe laterally but no erythema noted. Bilateral legs and thighs with normal exam.). Absent: calf tenderness - Back Exam Back exam: Present: normal inspection, full ROM, other (ambulates without any difficulties). Absent: tenderness, CVA tenderness (R), CVA tenderness (L), muscle spasm, paraspinal tenderness, vertebral tenderness, rash noted - Neurological Exam Neurological exam: Present: alert, oriented X3, normal gait, reflexes normal. Absent: motor sensory deficit - Psychiatric Psychiatric exam: Present: normal affect, normal mood - Skin Skin exam: Present: warm, dry, intact, normal color. Absent: rash ED Course Vital Signs 03/21/18 03/21/18 14:55 19:05 Temperature 98.6 F Pulse Rate 117 H 92 H Respiratory 16 Rate Blood Pressure 118/71 O2 Sat by Pulse 97 Oximetry - Reevaluation(s) Reevaluation #1: 03/21/18 19:56 Patient given Decadron 10 mg IM and Toradol 60 mg IM for gout flare and he voiced relief of pain down to 3/10. ED Medical Decision Making - Medical Decision Making This is a 52-year-old male who has been noncompliant with his diet and also diet to prevent gout. He said he drank 12 small bottles of Coke yesterday and he started having gout flare up. Patient has a primary care physician who is Dr. Alexy Patton that manage his gout and high blood pressure. Assessment/plan 1: Acute gouty arthritis attack, multiple sites-patient given an Decadron 10 mg IM and Toradol 60 mg IM and he voiced relief of pain down to 3 out of 10. 2: Arthralgia multiple sites-better with medication. Patient will be discharged home on prednisone dosepak and Motrin and he has Colcrys at home that he had from previous gout attacks. Discussed the patient as diagnosis, medication and treatment plan. I reinforced that he needs to stop eating foods that time period ended he needs to read discharge instruction paperwork regarding that is going.. Patient's that he will be following up with his primary care doctor on Saturday. Patient said he understands that he has to stop eating food that triggers his gout but sometimes he just cannot help it. Patient is stable upon discharge with decrease in pain, vital signs stable afebrile and discharged home with prescription for prednisone dosepak and Motrin. He is to follow-up with Dr. Alexy Patton on 03/24/2018 and he voiced understanding. Critical care attestation.: If time is entered above; I have spent that time in minutes in the direct care of this critically ill patient, excluding procedure time. ED Disposition Clinical Impression: Arthralgia of multiple sites, bilateral Gout attack Qualifiers: Gout site: multiple sites Gout etiology: unspecified cause Qualified Code(s): M10.9 - Gout, unspecified Disposition: TO HOME OR SELFCARE Is pt being admited?: No Does the pt Need Aspirin: No Condition: Stable Instructions: Low Purine Diet (ED), Acute Gouty Arthritis (ED), Arthralgia (ED) Additional Instructions: Please see discharge instruction on low. Diet that you have been given several times. Please follow up via primary care physician on Saturday. Take your Colcrys that you have at home as previously instructed Take Motrin and prednisone Dosepak for gout flareup. Increasing her fluid intake. If your symptoms worsens, return to the emergency room Prescriptions: Ibuprofen [Motrin 600 MG tab] 600 mg PO Q8H PRN #30 tablet PRN Reason: Pain predniSONE [Deltasone] 10 mg PO QDAY #5 tab Referrals: PRIMARY CARE, [Primary Care Provider] - 03/24/18 Forms: Work/School Release Form(ED)
== END 2018-03-21 20:04 | disposition home or self-care (01) ==
LOC: ED 14:50
DX: M10.9 Gout, unspecified (principal); M25.50 Pain in unspecified joint; I10 Essential (primary) hypertension; F41.9 Anxiety disorder, unspecified; G47.30 Sleep apnea, unspecified; Z87.442 Personal history of urinary calculi; Z90.89 Acquired absence of other organs; Z91.013 Allergy to seafood; Z79.899 Other long term (current) drug therapy
CPT/HCPCS: 96372; 99282; J1100; J1885

== ENCOUNTER 2018-12-03 04:16 | Emergency (ER) | payer MEDICARE ==
[2018-12-03] MEDS ORDERED: DECADRON IM ONE (07:15)
[2018-12-03] MEDS ORDERED: NORCO 7.5/325 PO ONE (07:15)
--- NOTE | 2018-12-03 07:43 | Emergency Department Report ---
HPI - General Chief Complaint: Extremity Problem,Nontraumatic Time Seen by Provider: 12/03/18 07:14 - HPI HPI: Patient is a very pleasant 53-year-old -[place] male who comes to the ER today complaining of gout pain in his right knee. This is acute on chronic gout pain. He is on colchicine and allopurinol but that is not helping. He is out of his prednisone. He usually follows with his primary care but could not get in. Patient denies any trauma. Patient's ambulatory on the knee. ED Past Medical Hx - Past Medical History Previous Medical History?: Yes Hx Hypertension: Yes Hx Diabetes: Yes (borderline) Hx Kidney Stones: Yes Hx Psychiatric Treatment: Yes (anxiety) Additional medical history: GOUT, Chronic back pain, Loud snoring with poss sleep apnea - Surgical History Past Surgical History?: No Additional Surgical History: tonsillectomy - Family History Family history: no significant - Social History Smoking Status: Never Smoker Substance Use Type: None - Medications Home Medications: Home Medications Medication Instructions Recorded Confirmed Last Taken Type Lisinopril [Zestril TAB] 30 mg PO QDAY 08/18/14 05/04/16 02/08/16 08:00 History Propranolol [Inderal] 10 mg PO BID #60 tablet 02/09/16 05/04/16 Unknown Rx amLODIPine [Norvasc] 10 mg PO QDAY #30 tablet 02/09/16 05/04/16 Unknown Rx Colchicine 0.6 mg PO DAILY #20 capsule 02/04/18 Unknown Rx Naproxen [Naprosyn] 500 mg PO BID PRN #20 tablet 12/03/18 Unknown Rx predniSONE [Deltasone] 20 mg PO DAILY #5 tablet 12/03/18 Unknown Rx ED Review of Systems ROS: Stated complaint: GOUT BOTH KNEES Other details as noted in HPI Comment: All other systems reviewed and negative Physical Exam - Physical Exam Vital Signs: Vital Signs 12/03/18 12/03/18 04:19 07:35 Temperature 97.7 F Pulse Rate 91 H Respiratory 18 18 Rate Blood Pressure 115/69 O2 Sat by Pulse 97 Oximetry Physical Exam: Pt is awake alert and oriented. There is no focal neuro deficit. Patient is ambulatory and moves all extremities well. S1-S2 no murmur or bruit or rub Lungs clear to auscultation Abdomen soft nontender No CVA tenderness affect and mood appropriate Right knee with mild swelling and redness. No concern for infection for there is no portal, abrasion or wound. There is no effusion. There is no cyst behind the knee. Patient has full range of motion of the knee. He can extend and flex the knee. He is ambulatory. Distal extremity is warm. He has got +2 DP pulses. ED Course Vital Signs 12/03/18 12/03/18 04:19 07:35 Temperature 97.7 F Pulse Rate 91 H Respiratory 18 18 Rate Blood Pressure 115/69 O2 Sat by Pulse 97 Oximetry ED Medical Decision Making - Medical Decision Making Patient suffers with acute on chronic gout pain. Today his pain is of his right knee. He is taking his allopurinol and colchicine but it is not working. He is out of his prednisone. There is been no trauma to suggest other injury of the knee. Patient does have arthritis in the knee and is undergoing a knee replacement this summer. Patient was medicated in the ER for pain and will be sent home on prednisone. Patient has been instructed to follow-up with his primary care doctor. Vital Signs 12/03/18 12/03/18 04:19 07:35 Temperature 97.7 F Pulse Rate 91 H Respiratory 18 18 Rate Blood Pressure 115/69 O2 Sat by Pulse 97 Oximetry Critical care attestation.: If time is entered above; I have spent that time in minutes in the direct care of this critically ill patient, excluding procedure time. ED Disposition Clinical Impression: Gout Disposition: PAT REG,NO TRIAGE Is pt being admited?: No Condition: Stable Instructions: Acute Gouty Arthritis (ED) Additional Instructions: DIET TOLERATED MEDS ORDERED TODAY IN ER FOLLOW INSTRUCTIONS ON THE BOTTLE FOLLOW UP PCP WITHIN 48 HOURS TO ENSURE YOU ARE GETTING BETTER ACTIVITY TOLERATED MOTRIN OR TYLENOL FOR PAIN OR FEVER RETURN TO THE ER FOR WORSENING SYMPTOMS NOT RELIEVED BY YOUR MEDICATIONS. Referrals: NAREN BAJWA MD [Primary Care Provider] - 3-5 Days Time of Disposition: 07:43
[2018-12-03 07:56] VITALS: BP 120/72
== END 2018-12-03 07:57 | disposition left against medical advice (07) ==
LOC: ED 04:16
DX: M10.9 Gout, unspecified (principal); I10 Essential (primary) hypertension; F41.9 Anxiety disorder, unspecified
CPT/HCPCS: 96372; 99282; J1100

== ENCOUNTER 2018-12-20 21:24 | Emergency (ER) | payer MEDICARE ==
--- NOTE | 2018-12-20 22:07 | Emergency Department Report ---
Blank Doc - Documentation Documentation: 53 y/o male with chronic back pain seeing pain management due for epidural January 09 presents to ED c/o of back pain that has now moved from his usual left side and now spread over to right side during the last 4 days. No loss of bowel or bladder. No trauma Reports inablity to walk. plan lumbar series
--- NOTE | 2018-12-20 22:51 | XRay Report ---
PROCEDURE: XR SPINE LUMBOSACRAL 2-3V TECHNIQUE: 3 views obtained of the lumbar spine HISTORY: pain to right lower back COMPARISONS: No priors FINDINGS: No radiographic evidence of acute lumbar fracture. No compression deformity. There is a transitional vertebra at the lumbosacral junction with lumbarization of S1. Mild narrowing of the L5-S1 intervertebral disc space. Minimal anterolisthesis of L5 on S1. IMPRESSION: Mild narrowing of the L5-S1 intervertebral disc space and minimal anterolisthesis of L5 on S1. 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 This document is electronically signed by Baldomero Nova MD., December 20 2018 10:49:46 PM ET
--- NOTE | 2018-12-20 22:53 | XRay Report ---
PROCEDURE: XR HIP 2-3V RT TECHNIQUE: AP pelvis and right hip HISTORY: pain to right hip COMPARISONS: No priors FINDINGS: Hips are symmetric in appearance. The joint spaces are preserved. No acute fracture or dislocation. The pubic rami are intact. Sacrum within normal limits. IMPRESSION: Normal bony pelvis and right hip.. This document is electronically signed by Baldomero Nova MD., December 20 2018 10:51:13 PM ET
[2018-12-21] MEDS ORDERED: DECADRON IM ONE (01:50)
[2018-12-21] MEDS ORDERED: TORADOL IM ONE (01:50)
[2018-12-21] MEDS ORDERED: FLEXERIL PO ONE (01:51)
--- NOTE | 2018-12-21 01:56 | Emergency Department Report ---
ED Back Pain/Injury HPI - General Chief Complaint: Back Pain/Injury Stated Complaint: BACK PAIN Time Seen by Provider: 12/20/18 22:03 Source: patient, EMS Limitations: No Limitations - History of Present Illness Initial Comments: Pt is a 53 yo male who presents to the ED with c/o right sided back pain that radiates to the right gluteus samantha, right hip, and down the right leg that began 4 days ago. He denies any fall or injury. He states he has been bending over more often and lifting items. He denies any numbness, bowel/bladder incontinence, or saddle numbness. He states he has a hx of chronic back pain. the patient states he has a hx of sciatica on the left side but has not had issues on the right side previously. he states he sees [facility] and receives epidural injections. he denies any allergies to meds. - Related Data Home Medications Medication Instructions Recorded Confirmed Last Taken Lisinopril [Zestril TAB] 30 mg PO QDAY 08/18/14 05/04/16 02/08/16 08:00 Previous Rx's Medication Instructions Recorded Last Taken Type Propranolol [Inderal] 10 mg PO BID #60 tablet 02/09/16 Unknown Rx amLODIPine [Norvasc] 10 mg PO QDAY #30 tablet 02/09/16 Unknown Rx Colchicine 0.6 mg PO DAILY #20 capsule 02/04/18 Unknown Rx Naproxen [Naprosyn] 500 mg PO BID PRN #20 tablet 12/03/18 Unknown Rx predniSONE [Deltasone] 20 mg PO DAILY #5 tablet 12/03/18 Unknown Rx Cyclobenzaprine [Flexeril] 10 mg PO QHS PRN #12 tablet 12/21/18 Unknown Rx Ibuprofen [Motrin 800 MG tab] 800 mg PO Q8HR PRN #14 tablet 12/21/18 Unknown Rx Prednisone [predniSONE 5 mg (6-Day 5 mg PO .TAPER #1 tab.ds.pk 12/21/18 Unknown Rx Pack, 21 Tabs)] Allergies Allergy/AdvReac Type Severity Reaction Status Date / Time shellfish derived Allergy Rash Verified 02/04/18 14:14 ED Review of Systems ROS: Stated complaint: BACK PAIN Other details as noted in HPI Comment: All other systems reviewed and negative ED Past Medical Hx - Past Medical History Previous Medical History?: Yes Hx Hypertension: Yes Hx Diabetes: Yes (borderline) Hx Kidney Stones: Yes Hx Psychiatric Treatment: Yes (anxiety) Additional medical history: GOUT, Chronic back pain, Loud snoring with poss sleep apnea - Surgical History Past Surgical History?: Yes Additional Surgical History: tonsillectomy - Social History Smoking Status: Never Smoker Substance Use Type: None, Alcohol - Medications Home Medications: Home Medications Medication Instructions Recorded Confirmed Last Taken Type Lisinopril [Zestril TAB] 30 mg PO QDAY 08/18/14 05/04/16 02/08/16 08:00 History Propranolol [Inderal] 10 mg PO BID #60 tablet 02/09/16 05/04/16 Unknown Rx amLODIPine [Norvasc] 10 mg PO QDAY #30 tablet 02/09/16 05/04/16 Unknown Rx Colchicine 0.6 mg PO DAILY #20 capsule 02/04/18 Unknown Rx Naproxen [Naprosyn] 500 mg PO BID PRN #20 tablet 12/03/18 Unknown Rx predniSONE [Deltasone] 20 mg PO DAILY #5 tablet 12/03/18 Unknown Rx Cyclobenzaprine [Flexeril] 10 mg PO QHS PRN #12 tablet 12/21/18 Unknown Rx Ibuprofen [Motrin 800 MG tab] 800 mg PO Q8HR PRN #14 tablet 12/21/18 Unknown Rx Prednisone [predniSONE 5 mg (6-Day 5 mg PO .TAPER #1 tab.ds.pk 12/21/18 Unknown Rx Pack, 21 Tabs)] ED Physical Exam - General Limitations: No Limitations General appearance: alert, in no apparent distress - Head Head exam: Present: atraumatic, normocephalic - Eye Eye exam: Present: normal appearance, PERRL - Respiratory Respiratory exam: Present: normal lung sounds bilaterally. Absent: respiratory distress, wheezes, rales, rhonchi, stridor, chest wall tenderness, accessory muscle use, decreased breath sounds, prolonged expiratory - Cardiovascular Cardiovascular Exam: Present: regular rate, normal rhythm, normal heart sounds. Absent: systolic murmur, diastolic murmur, rubs, gallop - Extremities Exam Extremities exam: Present: other (full passive ROM of the right hip, TTP over the right gluteus samantha ) - Back Exam Back exam: Present: normal inspection, full ROM, paraspinal tenderness (right lumbar paraspinal muscular TTP, no midline tenderness to palpation, no step offs, no deformities). Absent: vertebral tenderness - Neurological Exam Neurological exam: Present: alert, oriented X3, CN II-XII intact, normal gait. Absent: motor sensory deficit - Psychiatric Psychiatric exam: Present: normal affect, normal mood - Skin Skin exam: Present: warm, dry, intact ED Course Vital Signs 12/20/18 12/21/18 12/21/18 21:27 02:05 02:35 Temperature 98.2 F Pulse Rate 113 H Respiratory 18 20 20 Rate Blood Pressure 121/64 Blood Pressure [Left] O2 Sat by Pulse 97 Oximetry 12/21/18 02:39 Temperature 98.6 F Pulse Rate 92 H Respiratory 20 Rate Blood Pressure Blood Pressure 121/65 [Left] O2 Sat by Pulse 99 Oximetry ED Medical Decision Making - Radiology Data Radiology results: report reviewed PROCEDURE: XR SPINE LUMBOSACRAL 2-3V TECHNIQUE: 3 views obtained of the lumbar spine HISTORY: pain to right lower back COMPARISONS: No priors FINDINGS: No radiographic evidence of acute lumbar fracture. No compression deformity. There is a transitional vertebra at the lumbosacral junction with lumbarization of S1. Mild narrowing of the L5-S1 intervertebral disc space. Minimal anterolisthesis of L5 on S1. IMPRESSION: Mild narrowing of the L5-S1 intervertebral disc space and minimal anterolisthesis of L5 on S1. 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 This document is electronically signed by Baldomero Nova MD., December 20 2018 10:49:46 PM ET Transcribed By: CALVIN Dictated By: BALDOMERO NOVA MD Electronically Authenticated By: BALDOMERO NOVA MD Signed Date/Time: 12/20/18 225 PROCEDURE: XR HIP 2-3V RT TECHNIQUE: AP pelvis and right hip HISTORY: pain to right hip COMPARISONS: No priors FINDINGS: Hips are symmetric in appearance. The joint spaces are preserved. No acute fracture or dislocation. The pubic rami are intact. Sacrum within normal limits. IMPRESSION: Normal bony pelvis and right hip.. This document is electronically signed by Baldomero Nova MD., December 20 2018 10:51:13 PM ET Transcribed By: CALVIN Dictated By: BALDOMERO NOVA MD Electronically Authenticated By: BALDOMERO NOVA MD Signed Date/Time: 12/20/18 2253 - Medical Decision Making Pt is a 53 yo male who presents to the ED with c/o right sided back pain that radiates to the right gluteus samantha, right hip, and down the right leg that be kevin 4 days ago. He denies any fall or injury. He states he has been bending over more often and lifting items. He denies any numbness, bowel/bladder incontinence, or saddle numbness. He states he has a hx of chronic back pain. the patient states he has a hx of sciatica on the left side but has not had issues on the right side previously. he states he sees [facility] and receives epidural injections. he denies any allergies to meds. on exam pt has right lumbar paraspinal muscular TTP, no midline tenderness to palpation, no step offs, no deformities, full passive ROM of the right hip, TTP over the right gluteus. XR of the l-spine shows Mild narrowing of the L5-S1 intervertebral disc space and minimal anterolisthesis of L5 on S1. Transitional vertebra at the lumbosacral junction with lumbarization of S1. XR of the right hip with no acute process. pt given toradol, dexamethasone, and flexeril while in the ED. pt given prescription for steroids, anti-inflammatory, and muscle relaxer. advised to please take medication as prescribed as needed. do not drive or operate heavy machinery while taking muscle relaxer. may use ice, rest, heating pad, epsom salt bath. follow up with your orthopedic spine doctor and the pain clinic in the next 2-3 days. return to the emergency room for any new or worsening symptoms. please practice good diet habits and exercise. Critical care attestation.: If time is entered above; I have spent that time in minutes in the direct care of this critically ill patient, excluding procedure time. ED Disposition Clinical Impression: Anterolisthesis Low back pain Qualifiers: Chronicity: acute Back pain laterality: right Sciatica presence: with sciatica Sciatica laterality: sciatica of right side Qualified Code(s): M54.41 - Lumbago with sciatica, right side Disposition: DC-01 TO HOME OR SELFCARE Is pt being admited?: No Does the pt Need Aspirin: No Condition: Stable Instructions: Sciatica (ED) Additional Instructions: Please take medication as prescribed as needed. do not drive or operate heavy machinery while taking muscle relaxer. may use ice, rest, heating pad, epsom salt bath. follow up with your orthopedic spine doctor and the pain clinic in the next 2-3 days. return to the emergency room for any new or worsening symptoms. please practice good diet habits and exercise. Prescriptions: Cyclobenzaprine [Flexeril] 10 mg PO QHS PRN #12 tablet PRN Reason: Muscle Spasm Ibuprofen [Motrin 800 MG tab] 800 mg PO Q8HR PRN #14 tablet PRN Reason: Pain, Moderate (4-6) Prednisone [predniSONE 5 mg (6-Day Pack, 21 Tabs)] 5 mg PO .TAPER #1 tab.ds.pk Referrals: PRIMARY CARE,MD [Primary Care Provider] - 2-3 Days your, pain clinic [Other] - 2-3 Days Forms: Work/School Release Form(ED) Time of Disposition: 01:57 Print Language: YORUBA
[2018-12-21 02:40] VITALS: BP 121/65
== END 2018-12-21 02:41 | disposition home or self-care (01) ==
LOC: ED 21:24
DX: M43.16 Spondylolisthesis, lumbar region (principal); I10 Essential (primary) hypertension; E11.9 Type 2 diabetes mellitus without complications; F41.9 Anxiety disorder, unspecified; G89.29 Other chronic pain; Z91.013 Allergy to seafood; Z79.899 Other long term (current) drug therapy
CPT/HCPCS: 72100; 73502; 96372; 99284; J1100; J1885

== ENCOUNTER 2019-01-23 07:17 | Emergency (ER) | payer MEDICARE ==
[2019-01-23 07:56] LABS: Basophils % (Auto) 0.4 % (0.0-1.8); Eosinophils # (Auto) 0.2 K/mm3 (0.0-0.4); Eosinophils % (Auto) 2.2 % (0.0-4.3); Hematocrit 37.5 % (35.5-45.6); Hemoglobin 13.1 gm/dl (11.8-15.2); Lymphocytes # (Auto) 1.6 K/mm3 (1.2-5.4); Lymphocytes % (Auto) 15.6 % (13.4-35.0); Mean Corpuscular HGB Conc 35 % (32-34); Mean Corpuscular Hemoglobin 36 pg (28-32); Mean Corpuscular Volume 102 fl (84-94); Monocytes # (Auto) 1.1 K/mm3 (0.0-0.8); Monocytes % (Auto) 10.9 % (0.0-7.3); Platelet Count 325 K/mm3 (140-440); Red Blood Count 3.68 M/mm3 (3.65-5.03); Red Cell Distribution Width 14.5 % (13.2-15.2)
--- NOTE | 2019-01-23 08:16 | Emergency Department Report ---
ED Abdominal Pain HPI - General Chief Complaint: Abdominal Pain Stated Complaint: STOMACH/BACK PAIN Time Seen by Provider: 01/23/19 07:32 Source: patient Mode of arrival: Wheelchair Limitations: No Limitations - History of Present Illness Initial Comments: This is a 53-year-old male presents to the ED complaining of back pain started yesterday after he was lifted to a condition. Patient states prior to that 2 days ago he started with redness and lower abdominal pain that's worsened with getting up in the morning. Patient states that he has a higher bed. And whenever he gets off at the bed he has to strain. Patient states this is the pain radiating to his lower groin area. Patient states his pain is worse with standing up and getting up but better with laying down. Signed he denies C this is chills/nausea vomiting/trauma/diarrhea - Related Data Home Medications Medication Instructions Recorded Confirmed Last Taken Lisinopril [Zestril TAB] 30 mg PO QDAY 08/18/14 05/04/16 02/08/16 08:00 Previous Rx's Medication Instructions Recorded Last Taken Type Propranolol [Inderal] 10 mg PO BID #60 tablet 02/09/16 Unknown Rx amLODIPine [Norvasc] 10 mg PO QDAY #30 tablet 02/09/16 Unknown Rx Colchicine 0.6 mg PO DAILY #20 capsule 02/04/18 Unknown Rx predniSONE [Deltasone] 20 mg PO DAILY #5 tablet 12/03/18 Unknown Rx Cyclobenzaprine [Flexeril] 10 mg PO QHS PRN #12 tablet 12/21/18 Unknown Rx Ibuprofen [Motrin 800 MG tab] 800 mg PO Q8HR PRN #14 tablet 12/21/18 Unknown Rx Prednisone [predniSONE 5 mg (6-Day 5 mg PO .TAPER #1 tab.ds.pk 12/21/18 Unknown Rx Pack, 21 Tabs)] Allergies Allergy/AdvReac Type Severity Reaction Status Date / Time shellfish derived Allergy Rash Verified 01/23/19 07:20 ED Review of Systems ROS: Stated complaint: STOMACH/BACK PAIN Other details as noted in HPI Comment: All other systems reviewed and negative ED Past Medical Hx - Past Medical History Hx Hypertension: Yes Hx Diabetes: Yes (borderline) Hx Kidney Stones: Yes Hx Psychiatric Treatment: Yes (anxiety) Additional medical history: GOUT, Chronic back pain, Loud snoring with poss sleep apnea - Surgical History Additional Surgical History: tonsillectomy - Social History Smoking Status: Never Smoker Substance Use Type: Alcohol - Medications Home Medications: Home Medications Medication Instructions Recorded Confirmed Last Taken Type Lisinopril [Zestril TAB] 30 mg PO QDAY 08/18/14 05/04/16 02/08/16 08:00 History Propranolol [Inderal] 10 mg PO BID #60 tablet 02/09/16 05/04/16 Unknown Rx amLODIPine [Norvasc] 10 mg PO QDAY #30 tablet 02/09/16 05/04/16 Unknown Rx Colchicine 0.6 mg PO DAILY #20 capsule 02/04/18 Unknown Rx predniSONE [Deltasone] 20 mg PO DAILY #5 tablet 12/03/18 Unknown Rx Cyclobenzaprine [Flexeril] 10 mg PO QHS PRN #12 tablet 12/21/18 Unknown Rx Ibuprofen [Motrin 800 MG tab] 800 mg PO Q8HR PRN #14 tablet 12/21/18 Unknown Rx Prednisone [predniSONE 5 mg (6-Day 5 mg PO .TAPER #1 tab.ds.pk 12/21/18 Unknown Rx Pack, 21 Tabs)] ED Physical Exam - General Limitations: No Limitations General appearance: alert, in no apparent distress - Head Head exam: Present: atraumatic, normocephalic - Eye Eye exam: Present: normal appearance - ENT ENT exam: Present: mucous membranes moist - Neck Neck exam: Present: normal inspection - Respiratory Respiratory exam: Present: normal lung sounds bilaterally. Absent: respiratory distress - Cardiovascular Cardiovascular Exam: Present: regular rate, normal rhythm. Absent: systolic murmur, diastolic murmur, rubs, gallop - GI/Abdominal GI/Abdominal exam: Present: soft, normal bowel sounds - Rectal Rectal exam: Present: deferred - Extremities Exam Extremities exam: Present: normal inspection - Back Exam Back exam: Present: normal inspection - Neurological Exam Neurological exam: Present: alert, oriented X3 - Psychiatric Psychiatric exam: Present: normal affect, normal mood - Skin Skin exam: Present: warm, dry, intact, normal color. Absent: rash ED Course Vital Signs 01/23/19 07:20 Temperature 98.4 F Pulse Rate 88 Respiratory 22 Rate Blood Pressure 112/72 O2 Sat by Pulse 97 Oximetry ED Medical Decision Making - Lab Data Result diagrams: 01/23/19 07:37 01/23/19 07:37 - Radiology Data Radiology results: report reviewed, image reviewed ULTRASOUND EXTREMITY NONVASCULAR RIGHT ULTRASOUND EXTREMITY NONVASCULAR LEFT HISTORY: Bilateral groin pain. TECHNIQUE: Targeted grayscale ultrasound with color Doppler imaging was performed in both groin regions. COMPARISON: None. FINDINGS: Images of the right groin region are unremarkable. No evidence for mass, cyst or hernia. Images of the left groin region demonstrate a fat-containing left inguinal hernia which is mobile and changes in size with Valsalva and compression. No peristalsing bowel loops are identified within. IMPRESSION: Left inguinal hernia containing fat. No evidence for groin mass or fluid collection. Signer Name: Elier Baptiste Jr, MD Signed: 01/23/2019 10:34 AM Workstation Name: [id number] Transcribed By: TTR Dictated By: ELIER BAPTISTE JR, MD Electronically Authenticated By: ELIER BAPTISTE JR, MD Signed Date/Time: 01/23/19 1034 - Medical Decision Making 53-year-old male presents with left inguinal hernia CBC, CMP, urinalysis are obtained. Labs are within normal limits Ultrasound lower extremity groin area obtained. Shows left inguinal hernia's report above Discussed findings with the patient. Hernia is not incarcerated or bleeding or strangulated to palpation. Palpation with urology. Urologist referral given to patient. Discussed patient's to make missing appointments of follow-up. Patient given pain medication and instructions. Vital signs are normal patient is in no acute distress. Critical care attestation.: If time is entered above; I have spent that time in minutes in the direct care of this critically ill patient, excluding procedure time. ED Disposition Clinical Impression: Left inguinal hernia Disposition: DC-01 TO HOME OR SELFCARE Is pt being admited?: No Does the pt Need Aspirin: No Condition: Stable Instructions: Inguinal Hernia (ED), Groin Pain (ED) Additional Instructions: Make sure to follow up with the primary care physician as discussed. Take all your medications as you've been prescribed. If you have any worsening symptoms or develop new symptoms please return to ED immediately. Referrals: EVELIN JIMENEZ MD [Primary Care Provider] - 3-5 Days ANA PAULA CARLSON MD [Staff Physician] - 3-5 Days CHRISTINE PHILLIPS MD [Referring] - 3-5 Days SHOAIB FUCHS MD [Staff Physician] - 3-5 Days Forms: Work/School Release Form(ED) Time of Disposition: 11:15
[2019-01-23 08:18] LABS: Bilirubin,Urine NEG (Negative); Blood,Urine SM (Negative); Color,Urine Yellow (Yellow); Mucus,Urine FEW /HPF; Protein,Urine <15 mg/dL mg/dL (Negative); Urobilinogen,Urine < 2.0 mg/dL (<2.0)
[2019-01-23 08:21] LABS: Alanine Aminotransferase 33 units/L (7-56); Albumin 4.5 g/dL (3.9-5); BUN/Creatinine Ratio 8; Blood Urea Nitrogen 11 mg/dL (9-20); Calcium 9.6 mg/dL (8.4-10.2); Hemolysis Index 8
[2019-01-23] MEDS ORDERED: TORADOL IM ONE (08:45)
--- NOTE | 2019-01-23 10:38 | Ultrasound Report ---
ULTRASOUND EXTREMITY NONVASCULAR RIGHT ULTRASOUND EXTREMITY NONVASCULAR LEFT HISTORY: Bilateral groin pain. TECHNIQUE: Targeted grayscale ultrasound with color Doppler imaging was performed in both groin regio ns. COMPARISON: None. FINDINGS: Images of the right groin region are unremarkable. No evidence for mass, cyst or hernia. Images of the left groin region demonstrate a fat-containing left inguinal hernia which is mobile and changes in size with Valsalva and compression. No peristalsing bowel loops are identified within. IMPRESSION: Left inguinal hernia containing fat. No evidence for groin mass or fluid collection. Signer Name: Elier Baptiste Jr, MD Signed: 01/23/2019 10:34 AM Workstation Name: [id number]
[2019-01-23 11:46] VITALS: BP 130/75
== END 2019-01-23 11:44 | disposition home or self-care (01) ==
LOC: ED 07:17
DX: K40.90 Unilateral inguinal hernia, without obstruction or gangrene, not specified as recurrent (principal); I10 Essential (primary) hypertension; E11.9 Type 2 diabetes mellitus without complications; F41.9 Anxiety disorder, unspecified; G89.29 Other chronic pain; Z87.442 Personal history of urinary calculi; Z90.89 Acquired absence of other organs; Z91.013 Allergy to seafood; Z79.899 Other long term (current) drug therapy
CPT/HCPCS: 36415; 76881; 80053; 81001; 85025; 96372; 99284; J1885

== ENCOUNTER 2019-05-05 18:49 | Emergency (ER) | payer MEDICARE ==
[2019-05-05 19:20] VITALS: BP 110/60
--- NOTE | 2019-05-05 19:57 | Emergency Department Report ---
Blank Doc - Documentation Documentation: 54-year-old male that presents with cough and chest pain only during coughing. This initial assessment/diagnostic orders/clinical plan/treatment(s) is/are subject to change based on patient's health status, clinical progression and re- assessment by fellow clinical providers in the ED. Further treatment and workup at subsequent clinical providers discretion. Patient/guardians urged not to elope from the ED as their condition may be serious if not clinically assessed and managed. Initial orders include: 1- Patient sent to [facility] for further evaluation and treatment 2- CXR
--- NOTE | 2019-05-05 20:53 | XRay Report ---
CHEST 2 VIEWS INDICATION / CLINICAL INFORMATION: cough. COMPARISON: Chest x-ray on 09/30/2012. FINDINGS: SUPPORT DEVICES: None. HEART / MEDIASTINUM: No significant abnormality. LUNGS / PLEURA: No significant pulmonary or pleural abnormality. No pneumothorax. ADDITIONAL FINDINGS: No significant additional findings. IMPRESSION: 1. No acute findings. Signer Name: Keenan Woods MD Signed: 05/05/2019 8:49 PM Workstation Name: [id number]
--- NOTE | 2019-05-05 22:13 | Emergency Department Report ---
ED General Adult HPI - General Chief complaint: Upper Respiratory Infection Stated complaint: COUGHING/BACK PAIN Time Seen by Provider: 05/05/19 19:56 Source: patient Mode of arrival: Ambulatory Limitations: No Limitations - History of Present Illness Initial comments: 54-year-old -[place] male with past medical history of hypertension and gout and diabetes mellitus emergency department of cough congestion coryza for the last 5-6 days. Reports no fever, chills, sweats no hemoptysis no hematemesis or hematochezia no yellow or green discharge. -: Gradual Radiation: non-radiation Severity scale (0 -10): 10 Consistency: constant Improves with: none Worsens with: none Associated Symptoms: denies: confusion, chest pain, diaphoresis, loss of appetite, malaise, nausea/vomiting, shortness of breath, syncope, weakness Treatments Prior to Arrival: none - Related Data Home Medications Medication Instructions Recorded Confirmed Last Taken Lisinopril [Zestril TAB] 30 mg PO QDAY 08/18/14 05/04/16 02/08/16 08:00 Previous Rx's Medication Instructions Recorded Last Taken Type Propranolol [Inderal] 10 mg PO BID #60 tablet 02/09/16 Unknown Rx amLODIPine 10 mg PO QDAY #30 tablet 02/09/16 Unknown Rx predniSONE [Deltasone] 20 mg PO DAILY #5 tablet 12/03/18 Unknown Rx Cyclobenzaprine [Flexeril] 10 mg PO QHS PRN #12 tablet 12/21/18 Unknown Rx Ibuprofen [Motrin 800 MG tab] 800 mg PO Q8HR PRN #14 tablet 12/21/18 Unknown Rx Prednisone [predniSONE 5 mg (6-Day 5 mg PO .TAPER #1 tab.ds.pk 12/21/18 Unknown Rx Pack, 21 Tabs)] Prednisone [predniSONE 10 mg 10 mg PO .TAPER #1 tab.ds.pk 03/30/19 Unknown Rx (6-Day Pack, 21 Tabs)] ALBUTEROL Inhaler (OR & NICU) 2 puff IH QID PRN #1 inhalation 05/05/19 Unknown Rx [ProAir HFA Inhaler] Colchicine 0.6 mg PO DAILY #20 capsule 05/05/19 Unknown Rx predniSONE [Deltasone] 50 mg PO QDAY #5 tab 05/05/19 Unknown Rx Allergies Allergy/AdvReac Type Severity Reaction Status Date / Time shellfish derived Allergy Rash Verified 01/23/19 07:20 ED Review of Systems ROS: Stated complaint: COUGHING/BACK PAIN Other details as noted in HPI Comment: All other systems reviewed and negative ED Past Medical Hx - Past Medical History Hx Hypertension: Yes Hx Diabetes: Yes (borderline) Hx Kidney Stones: Yes Hx Psychiatric Treatment: Yes (anxiety) Additional medical history: GOUT, Chronic back pain, Loud snoring with poss sleep apnea - Surgical History Additional Surgical History: tonsillectomy - Social History Smoking Status: Never Smoker Substance Use Type: Alcohol - Medications Home Medications: Home Medications Medication Instructions Recorded Confirmed Last Taken Type Lisinopril [Zestril TAB] 30 mg PO QDAY 08/18/14 05/04/16 02/08/16 08:00 History Propranolol [Inderal] 10 mg PO BID #60 tablet 02/09/16 05/04/16 Unknown Rx amLODIPine 10 mg PO QDAY #30 tablet 02/09/16 05/04/16 Unknown Rx predniSONE [Deltasone] 20 mg PO DAILY #5 tablet 12/03/18 Unknown Rx Cyclobenzaprine [Flexeril] 10 mg PO QHS PRN #12 tablet 12/21/18 Unknown Rx Ibuprofen [Motrin 800 MG tab] 800 mg PO Q8HR PRN #14 tablet 12/21/18 Unknown Rx Prednisone [predniSONE 5 mg (6-Day 5 mg PO .TAPER #1 tab.ds.pk 12/21/18 Unknown Rx Pack, 21 Tabs)] Prednisone [predniSONE 10 mg 10 mg PO .TAPER #1 tab.ds.pk 03/30/19 Unknown Rx (6-Day Pack, 21 Tabs)] ALBUTEROL Inhaler (OR & NICU) 2 puff IH QID PRN #1 inhalation 05/05/19 Unknown Rx [ProAir HFA Inhaler] Colchicine 0.6 mg PO DAILY #20 capsule 05/05/19 Unknown Rx predniSONE [Deltasone] 50 mg PO QDAY #5 tab 05/05/19 Unknown Rx ED Physical Exam - General Limitations: No Limitations General appearance: alert, in no apparent distress - Head Head exam: Present: atraumatic, normocephalic - Eye Eye exam: Present: normal appearance, PERRL, EOMI Pupils: Present: normal accommodation - ENT ENT exam: Present: normal exam, normal orophraynx, mucous membranes moist, TM's normal bilaterally - Neck Neck exam: Present: normal inspection, full ROM - Respiratory Respiratory exam: Present: normal lung sounds bilaterally. Absent: respiratory distress, wheezes, rales - Cardiovascular Cardiovascular Exam: Present: regular rate, normal rhythm. Absent: systolic murmur, diastolic murmur, rubs, gallop - GI/Abdominal GI/Abdominal exam: Present: soft, normal bowel sounds - Rectal Rectal exam: Present: deferred - Extremities Exam Extremities exam: Present: normal inspection, tenderness (to the right ankle with no problem pain worse with range of motion and palpation is 2+ capillary refills are brisk mild warmth), normal capillary refill. Absent: pedal edema - Expanded Lower Extremity Exam Right Hip exam: Present: normal inspection, full ROM Upper Leg exam: Present: normal inspection, full ROM Knee exam: Present: normal inspection, full ROM Lower Leg exam: Present: normal inspection, full ROM Ankle exam: Present: tenderness. Absent: abrasion, laceration, ecchymosis, deformity, crepidus, dislocation Foot/Toe exam: Present: normal inspection - Back Exam Back exam: Present: normal inspection. Absent: CVA tenderness (R), CVA tenderness (L) - Neurological Exam Neurological exam: Present: alert, oriented X3, CN II-XII intact - Psychiatric Psychiatric exam: Present: normal affect, normal mood. Absent: anxious, flat affect - Skin Skin exam: Present: warm, dry, intact, normal color. Absent: rash ED Course Vital Signs 05/05/19 05/05/19 19:19 19:56 Temperature 98.3 F 98.3 F Pulse Rate 103 H 103 H Respiratory 18 18 Rate Blood Pressure 110/60 Blood Pressure 110/60 [Right] O2 Sat by Pulse 97 97 Oximetry ED Medical Decision Making - Radiology Data Radiology results: report reviewed (x-ray shows no acute process (unable to cutseltzers very are not available in PACs)) - Medical Decision Making 54-year-old -[place] male with past medical history of hypertension gout and discussing the emergency department complaining of 5 days of cough and congestion with no mucus production and no hemoptysis hematemesis with a normal chest x-ray. Also complaining of a gout flare up to his right foot. Critical care attestation.: If time is entered above; I have spent that time in minutes in the direct care of this critically ill patient, excluding procedure time. ED Disposition Clinical Impression: Gout, Cough, Gouty arthritis Disposition: TO HOME OR SELFCARE Is pt being admited?: No Does the pt Need Aspirin: No Condition: Stable Instructions: Cold Symptoms (ED), Acute Gouty Arthritis (ED) Prescriptions: Colchicine 0.6 mg PO DAILY #20 capsule predniSONE [Deltasone] 50 mg PO QDAY #5 tab ALBUTEROL Inhaler (OR & NICU) [ProAir HFA Inhaler] 2 puff IH QID PRN #1 inhalation PRN Reason: Shortness Of Breath Referrals: MARIANA GAGNON MD [Emergency Provider] - 3-5 Days
== END 2019-05-05 22:40 | disposition home or self-care (01) ==
LOC: ED 18:49
DX: M10.071 Idiopathic gout, right ankle and foot (principal); I10 Essential (primary) hypertension; E11.9 Type 2 diabetes mellitus without complications; F41.9 Anxiety disorder, unspecified; M54.5 Low back pain; G89.29 Other chronic pain; G47.30 Sleep apnea, unspecified; Z90.89 Acquired absence of other organs; Z79.899 Other long term (current) drug therapy; Z87.442 Personal history of urinary calculi
CPT/HCPCS: 71046; 99283

== ENCOUNTER 2019-07-02 01:07 | Emergency (ER) | payer MEDICARE | END 2019-07-02 01:53 | disposition left against medical advice (07) | LOC: ED 01:07 | DX: R05 Cough (principal); Z53.21 Procedure and treatment not carried out due to patient leaving prior to being seen by health care provider ==

== ENCOUNTER 2019-07-04 00:02 | Emergency (ER) | payer MEDICARE ==
[2019-07-04] MEDS ORDERED: traMADol 50 MG TAB PO ONE (07:21)
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
[2019-07-04 08:56] VITALS: BP 118/70
== END 2019-07-04 08:55 | disposition home or self-care (01) ==
LOC: ED 00:02
DX: S16.1XXA Strain of muscle, fascia and tendon at neck level, initial encounter (principal); S39.012A Strain of muscle, fascia and tendon of lower back, initial encounter; S60.222A Contusion of left hand, initial encounter; I10 Essential (primary) hypertension; F41.9 Anxiety disorder, unspecified; V49.59XA Passenger injured in collision with other motor vehicles in traffic accident, initial encounter; Y93.89 Activity, other specified; Y92.488 Other paved roadways as the place of occurrence of the external cause; Y99.8 Other external cause status
CPT/HCPCS: 72040; 72100; 99283

== ENCOUNTER 2019-08-24 23:51 | Emergency (ER) | payer MEDICARE ==
[2019-08-25 00:01] VITALS: BP 126/71
[2019-08-25] MEDS ORDERED: guaiFENesin 100 MG/5 ML ORAL LIQD PO ONE (03:35)
[2019-08-25] MEDS ORDERED: dexAMETHasone 20 MG/5 ML VIAL IM ONE (03:35)
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
== END 2019-08-25 04:10 | disposition home or self-care (01) ==
LOC: ED 23:51
DX: J40 Bronchitis, not specified as acute or chronic (principal); M10.9 Gout, unspecified; I10 Essential (primary) hypertension; E11.9 Type 2 diabetes mellitus without complications; Z87.442 Personal history of urinary calculi; Z98.890 Other specified postprocedural states; Z90.89 Acquired absence of other organs; Z79.1 Long term (current) use of non-steroidal anti-inflammatories (NSAID); Z79.899 Other long term (current) drug therapy; Z91.013 Allergy to seafood
CPT/HCPCS: 96372; 99282; J1100

== ENCOUNTER 2020-07-01 08:19 | Emergency (ER) | payer MEDICARE ==
[2020-07-01 08:31] VITALS: BP 129/85
[2020-07-01] MEDS ORDERED: HYDROGEN PEROXIDE 118 ML SOLUTION TP ONE (09:19)
--- NOTE | 2020-07-01 10:07 | Emergency Department Report ---
ED ENT HPI - General Chief complaint: Earache Stated complaint: RT EAR PAIN Time Seen by Provider: 07/01/20 09:16 Source: patient Mode of arrival: Ambulatory Limitations: No Limitations - History of Present Illness Initial comments: This is a 55-year-old male brought by mother nontoxic, well nourished in appearance, no acute signs of distress presents to the ED with c/o of right hearing decreased and full sensation. Patient denies any ear drainage or pain. Patient denies any trauma to the area. Patient denies any mastoid tenderness or tragus tenderness. Patient denies hearing decrease or hearing changes. Patient denies any fever, chills, nausea, vomiting, chest pain, short of breath, headache or stiff neck. Patient denies any drug allergies or significant past medical history. -: days(s) Location: R ear Severity: mild Consistency: constant Improves with: none Worsens with: none Associated Symptoms: denies: fever, cough, gum swelling, toothache, pain with swallowing, sore throat, tinnitus, hearing loss, discharge from ear, rhinorrhea - Related Data Home Medications Medication Instructions Recorded Confirmed Last Taken Percocet 10/325 mg 10 mg PO Q4H PRN 01/08/20 01/08/20 Unknown Previous Rx's Medication Instructions Recorded Last Taken Type Ibuprofen [Motrin 800 MG tab] 800 mg PO Q8HR PRN #14 tablet 12/21/18 Unknown Rx Albuterol Mdi (or & Nicu Only) 2 puff IH QID PRN #1 inhalation 05/05/19 Unknown Rx [ProAir HFA Inhaler] traMADoL [Ultram 50 MG tab] 50 mg PO Q6HR PRN #21 tablet 07/04/19 Unknown Rx Colchicine 0.6 mg PO DAILY #20 capsule 01/14/20 Unknown Rx Cyclobenzaprine [Flexeril 10 MG 10 mg PO QHS PRN #12 tablet 01/14/20 Unknown Rx TAB] Gabapentin 300 mg PO BID 30 Days #60 cap 01/14/20 Unknown Rx amLODIPine 10 mg PO QDAY 30 Days #30 tablet 01/14/20 Unknown Rx guaiFENesin [Robitussin] 100 mg PO Q6H 30 Days #120 ml 01/14/20 Unknown Rx lisinopriL [Zestril TAB] 30 mg PO QDAY #30 tab 01/14/20 Unknown Rx oxyCODONE /ACETAMINOPHEN [Percocet 1 tab PO Q4H PRN #12 tablet 01/14/20 Unknown Rx 5/325 mg] predniSONE [Deltasone] 20 mg PO DAILY #5 tablet 01/14/20 Unknown Rx predniSONE [Deltasone] 20 mg PO QDAY #6 tab 01/14/20 Unknown Rx propranoloL [Inderal] 10 mg PO BID #60 tablet 01/14/20 Unknown Rx Polymyxin B Sulf/Trimethoprim 2 ml OD TID #1 drops 07/01/20 Unknown Rx [Polytrim Eye Drops] Allergies Allergy/AdvReac Type Severity Reaction Status Date / Time shellfish derived Allergy Rash Verified 01/23/19 07:20 ED Dental HPI - General Chief complaint: Earache Stated complaint: RT EAR PAIN Time Seen by Provider: 07/01/20 09:16 Source: patient Mode of arrival: Ambulatory Limitations: No Limitations - Related Data Home Medications Medication Instructions Recorded Confirmed Last Taken Percocet 10/325 mg 10 mg PO Q4H PRN 01/08/20 01/08/20 Unknown Previous Rx's Medication Instructions Recorded Last Taken Type Ibuprofen [Motrin 800 MG tab] 800 mg PO Q8HR PRN #14 tablet 12/21/18 Unknown Rx Albuterol Mdi (or & Nicu Only) 2 puff IH QID PRN #1 inhalation 05/05/19 Unknown Rx [ProAir HFA Inhaler] traMADoL [Ultram 50 MG tab] 50 mg PO Q6HR PRN #21 tablet 07/04/19 Unknown Rx Colchicine 0.6 mg PO DAILY #20 capsule 01/14/20 Unknown Rx Cyclobenzaprine [Flexeril 10 MG 10 mg PO QHS PRN #12 tablet 01/14/20 Unknown Rx TAB] Gabapentin 300 mg PO BID 30 Days #60 cap 01/14/20 Unknown Rx amLODIPine 10 mg PO QDAY 30 Days #30 tablet 01/14/20 Unknown Rx guaiFENesin [Robitussin] 100 mg PO Q6H 30 Days #120 ml 01/14/20 Unknown Rx lisinopriL [Zestril TAB] 30 mg PO QDAY #30 tab 01/14/20 Unknown Rx oxyCODONE /ACETAMINOPHEN [Percocet 1 tab PO Q4H PRN #12 tablet 01/14/20 Unknown Rx 5/325 mg] predniSONE [Deltasone] 20 mg PO DAILY #5 tablet 01/14/20 Unknown Rx predniSONE [Deltasone] 20 mg PO QDAY #6 tab 01/14/20 Unknown Rx propranoloL [Inderal] 10 mg PO BID #60 tablet 01/14/20 Unknown Rx Polymyxin B Sulf/Trimethoprim 2 ml OD TID #1 drops 07/01/20 Unknown Rx [Polytrim Eye Drops] Allergies Allergy/AdvReac Type Severity Reaction Status Date / Time shellfish derived Allergy Rash Verified 01/23/19 07:20 ED Review of Systems ROS: Stated complaint: RT EAR PAIN Other details as noted in HPI Constitutional: denies: chills, fever Eyes: denies: eye pain, eye discharge, vision change ENT: denies: ear pain, throat pain Respiratory: denies: cough, shortness of breath, wheezing Cardiovascular: denies: chest pain, palpitations Endocrine: no symptoms reported Gastrointestinal: denies: abdominal pain, nausea, diarrhea Genitourinary: denies: urgency, dysuria Musculoskeletal: denies: back pain, joint swelling, arthralgia Skin: denies: rash, lesions Neurological: denies: headache, weakness, paresthesias Psychiatric: denies: anxiety, depression Hematological/Lymphatic: denies: easy bleeding, easy bruising ED Past Medical Hx - Past Medical History Previous Medical History?: Yes Hx Hypertension: Yes Hx Diabetes: Yes Hx Kidney Stones: Yes Hx Psychiatric Treatment: Yes (anxiety) Additional medical history: GOUT, Chronic back pain, Loud snoring with poss sleep apnea - Surgical History Past Surgical History?: Yes Additional Surgical History: tonsillectomy - Social History Smoking Status: Never Smoker Substance Use Type: None - Medications Home Medications: Home Medications Medication Instructions Recorded Confirmed Last Taken Type Ibuprofen [Motrin 800 MG tab] 800 mg PO Q8HR PRN #14 tablet 12/21/18 01/08/20 Unknown Rx Albuterol Mdi (or & Nicu Only) 2 puff IH QID PRN #1 inhalation 05/05/19 01/08/20 Unknown Rx [ProAir HFA Inhaler] traMADoL [Ultram 50 MG tab] 50 mg PO Q6HR PRN #21 tablet 07/04/19 01/08/20 Unknown Rx Percocet 10/325 mg 10 mg PO Q4H PRN 01/08/20 01/08/20 Unknown History Colchicine 0.6 mg PO DAILY #20 capsule 01/14/20 Unknown Rx Cyclobenzaprine [Flexeril 10 MG 10 mg PO QHS PRN #12 tablet 01/14/20 Unknown Rx TAB] Gabapentin 300 mg PO BID 30 Days #60 cap 01/14/20 Unknown Rx amLODIPine 10 mg PO QDAY 30 Days #30 tablet 01/14/20 Unknown Rx guaiFENesin [Robitussin] 100 mg PO Q6H 30 Days #120 ml 01/14/20 Unknown Rx lisinopriL [Zestril TAB] 30 mg PO QDAY #30 tab 01/14/20 Unknown Rx oxyCODONE /ACETAMINOPHEN [Percocet 1 tab PO Q4H PRN #12 tablet 01/14/20 Unknown Rx 5/325 mg] predniSONE [Deltasone] 20 mg PO DAILY #5 tablet 01/14/20 Unknown Rx predniSONE [Deltasone] 20 mg PO QDAY #6 tab 01/14/20 Unknown Rx propranoloL [Inderal] 10 mg PO BID #60 tablet 01/14/20 Unknown Rx Polymyxin B Sulf/Trimethoprim 2 ml OD TID #1 drops 07/01/20 Unknown Rx [Polytrim Eye Drops] ED Physical Exam - General Limitations: No Limitations General appearance: alert, in no apparent distress - Head Head exam: Present: atraumatic, normocephalic - Eye Eye exam: Present: normal appearance - Expanded ENT Exam Expanded Ear exam: Present: normal external inspection TM/Canal exam: Cerumen Impaction: Right TM Mouth exam: Present: normal external inspection - Neck Neck exam: Present: normal inspection - Respiratory Respiratory exam: Absent: respiratory distress - Cardiovascular Cardiovascular Exam: Present: regular rate - Extremities Exam Extremities exam: Present: full ROM - Back Exam Back exam: Present: full ROM - Neurological Exam Neurological exam: Present: alert, oriented X3, normal gait - Psychiatric Psychiatric exam: Present: normal affect, normal mood - Skin Skin exam: Present: warm, dry, intact, normal color. Absent: rash ED Course Vital Signs 07/01/20 08:28 Temperature 97.7 F Pulse Rate 87 Respiratory 20 Rate Blood Pressure 129/85 O2 Sat by Pulse 98 Oximetry - Reevaluation(s) Reevaluation #1: 07/01/20 10:04 Patient is speaking in full sentences with no signs of distress noted. - Ear Wax Removal Right Ear Cerumenolytic Used: Other (Hydroperoxide mixed with water) Ear Canal Irrigated by: other (Myself) Ear Canal Irrigated With: warm saline using syringe/angiocath Ear Canal(s) Curettaged: plastic scoops Results: Re-examined: cerumen removed completel TM Visible: TM(s) intact, normal appe Ear Canal: atraumatic Patient Tolerated Procedure: well, no complications Complications: no problems ED Medical Decision Making - Medical Decision Making 55-year-old male that presents with a cerumen impaction. Patient is stable and was examined by me. After procedure patient tolerated well and hearing has improved. Patient was instructed to follow-up with a primary care doctor in 3-5 days or if symptoms worsen and continue return to emergency room as soon as possible. At time of discharge, the patient does not seem toxic or ill in appearance. No acute signs of distress noted. Patient agrees to discharge treatment plan of care. No further questions noted by the patient. Critical care attestation.: If time is entered above; I have spent that time in minutes in the direct care of this critically ill patient, excluding procedure time. ED Disposition Clinical Impression: Impacted cerumen, right ear Disposition: DC-01 TO HOME OR SELFCARE Is pt being admited?: No Does the pt Need Aspirin: No Condition: Stable Instructions: Earwax Buildup, Adult Additional Instructions: Follow-up with a primary care doctor in 3-5 days or if symptoms worsen and continue return to emergency room as soon as possible. Prescriptions: Polymyxin B Sulf/Trimethoprim [Polytrim Eye Drops] 2 ml OD TID #1 drops Referrals: PRIMARY MD RUBY [Primary Care Provider] - 3-5 Days EVELIN JIMENEZ MD [Staff Physician] - 3-5 Days Time of Disposition: 10:14
== END 2020-07-01 10:47 | disposition home or self-care (01) ==
LOC: ED 08:19
DX: H61.21 Impacted cerumen, right ear (principal); I10 Essential (primary) hypertension; E11.9 Type 2 diabetes mellitus without complications; F41.9 Anxiety disorder, unspecified; Z90.89 Acquired absence of other organs; Z79.1 Long term (current) use of non-steroidal anti-inflammatories (NSAID); Z79.899 Other long term (current) drug therapy; Z91.013 Allergy to seafood
CPT/HCPCS: 99282

== ENCOUNTER 2020-07-06 15:14 | Emergency (ER) | payer MEDICARE ==
[2020-07-06] MEDS ORDERED: KETOROLAC 30 MG/1 ML INJ IM ONE (18:26)
[2020-07-06] MEDS ORDERED: oxyCODONE /ACETAMINOPHEN 5-325MG TAB PO ONE (18:26)
[2020-07-06] MEDS ORDERED: COLCHICINE 0.6 MG CAP PO ONE (18:26)
[2020-07-06] MEDS ORDERED: dexAMETHasone 20 MG/5 ML VIAL IM ONE (18:26)
--- NOTE | 2020-07-06 18:30 | Emergency Department Report ---
ED Extremity Problem HPI - General Chief complaint: Extremity Injury, Lower Stated complaint: RT KNEE PAIN/SWELLING Time Seen by Provider: 07/06/20 18:25 Source: patient, EMS Mode of arrival: Wheelchair Limitations: No Limitations - History of Present Illness Initial comments: The patient was evaluated in the emergency department for symptoms described in the history of present illness. He/she was evaluated in the context of the global COVID-19 pandemic, which necessitated consideration that the patient might be at risk for infection with the virus that causes COVID-19. Institutional protocols and algorithms that pertain to the evaluation of patients at risk for COVID-19 are in a state of rapid change based on information released by regulatory bodies including the CDC and federal and state organizations. These policies and algorithms were followed during the patient's care in the emergency department. Please note that these policies, pr ocedures and recommendations changed on a rapid basis. 55-year-old -[place] male presents to the emergency room for acute gout exacerbation of his right knee. Patient states is been going on for a #3 and reports he had eaten a pork steak and the next day he started having pain. Patient states that the pain is a 10 out of 10 and he is not able to straighten out his right knee secondary to pain. Patient reports he has been ambulating with crutches. He denies any injuries. Patient denies any fever or chills. Patient denies any fall. MD Complaint: extremity pain, extremity swelling, joint paint Location: right, knee History of Same: Yes -: Yes arthralgia Severity scale (0 -10): 10 Quality: stabbing, sharp, constant Consistency: constant Improves with: nothing Worsens with: weight bearing, walking, palpation Associated Symptoms: denies other symptoms - Related Data Home Medications Medication Instructions Recorded Confirmed Last Taken Percocet 10/325 mg 10 mg PO Q4H PRN 01/08/20 01/08/20 Unknown Previous Rx's Medication Instructions Recorded Last Taken Type Albuterol Mdi (or & Nicu Only) 2 puff IH QID PRN #1 inhalation 05/05/19 Unknown Rx [ProAir HFA Inhaler] traMADoL [Ultram 50 MG tab] 50 mg PO Q6HR PRN #21 tablet 07/04/19 Unknown Rx Cyclobenzaprine [Flexeril 10 MG 10 mg PO QHS PRN #12 tablet 01/14/20 Unknown Rx TAB] Gabapentin 300 mg PO BID 30 Days #60 cap 01/14/20 Unknown Rx amLODIPine 10 mg PO QDAY 30 Days #30 tablet 01/14/20 Unknown Rx guaiFENesin [Robitussin] 100 mg PO Q6H 30 Days #120 ml 01/14/20 Unknown Rx lisinopriL [Zestril TAB] 30 mg PO QDAY #30 tab 01/14/20 Unknown Rx predniSONE [Deltasone] 20 mg PO QDAY #6 tab 01/14/20 Unknown Rx propranoloL [Inderal] 10 mg PO BID #60 tablet 01/14/20 Unknown Rx Polymyxin B Sulf/Trimethoprim 2 ml OD TID #1 drops 07/01/20 Unknown Rx [Polytrim Eye Drops] Colchicine 0.6 mg PO DAILY #10 capsule 07/06/20 Unknown Rx Ibuprofen [Motrin 800 MG tab] 800 mg PO Q8HR PRN #14 tablet 07/06/20 Unknown Rx oxyCODONE /ACETAMINOPHEN [Percocet 1 tab PO Q4H PRN #12 tablet 07/06/20 Unknown Rx 5/325 mg] predniSONE [Deltasone] 20 mg PO DAILY #5 tablet 07/06/20 Unknown Rx Allergies Allergy/AdvReac Type Severity Reaction Status Date / Time shellfish derived Allergy Rash Verified 01/23/19 07:20 ED Review of Systems ROS: Stated complaint: RT KNEE PAIN/SWELLING Other details as noted in HPI Comment: All other systems reviewed and negative ED Past Medical Hx - Past Medical History Hx Hypertension: Yes Hx Diabetes: Yes Hx Kidney Stones: Yes Hx Psychiatric Treatment: Yes (anxiety) Additional medical history: GOUT, Chronic back pain, Loud snoring with poss sleep apnea - Surgical History Additional Surgical History: tonsillectomy - Social History Smoking Status: Never Smoker Substance Use Type: None - Medications Home Medications: Home Medications Medication Instructions Recorded Confirmed Last Taken Type Albuterol Mdi (or & Nicu Only) 2 puff IH QID PRN #1 inhalation 05/05/19 01/08/20 Unknown Rx [ProAir HFA Inhaler] traMADoL [Ultram 50 MG tab] 50 mg PO Q6HR PRN #21 tablet 07/04/19 01/08/20 Unknown Rx Percocet 10/325 mg 10 mg PO Q4H PRN 01/08/20 01/08/20 Unknown History Cyclobenzaprine [Flexeril 10 MG 10 mg PO QHS PRN #12 tablet 01/14/20 Unknown Rx TAB] Gabapentin 300 mg PO BID 30 Days #60 cap 01/14/20 Unknown Rx amLODIPine 10 mg PO QDAY 30 Days #30 tablet 01/14/20 Unknown Rx guaiFENesin [Robitussin] 100 mg PO Q6H 30 Days #120 ml 01/14/20 Unknown Rx lisinopriL [Zestril TAB] 30 mg PO QDAY #30 tab 01/14/20 Unknown Rx predniSONE [Deltasone] 20 mg PO QDAY #6 tab 01/14/20 Unknown Rx propranoloL [Inderal] 10 mg PO BID #60 tablet 01/14/20 Unknown Rx Polymyxin B Sulf/Trimethoprim 2 ml OD TID #1 drops 07/01/20 Unknown Rx [Polytrim Eye Drops] Colchicine 0.6 mg PO DAILY #10 capsule 07/06/20 Unknown Rx Ibuprofen [Motrin 800 MG tab] 800 mg PO Q8HR PRN #14 tablet 07/06/20 Unknown Rx oxyCODONE /ACETAMINOPHEN [Percocet 1 tab PO Q4H PRN #12 tablet 07/06/20 Unknown Rx 5/325 mg] predniSONE [Deltasone] 20 mg PO DAILY #5 tablet 07/06/20 Unknown Rx ED Physical Exam - General Limitations: No Limitations General appearance: alert, in distress - Head Head exam: Present: atraumatic, normocephalic - Eye Eye exam: Present: normal appearance - ENT ENT exam: Present: mucous membranes moist - Neck Neck exam: Present: normal inspection - Respiratory Respiratory exam: Absent: accessory muscle use - Expanded Lower Extremity Exam Right Knee exam: Present: tenderness, swelling, erythema Lower Leg exam: Present: full ROM, tenderness, swelling Ankle exam: Present: normal inspection, full ROM Foot/Toe exam: Present: normal inspection, full ROM Neuro vascular tendon exam: Present: no vascular compromise - Back Exam Back exam: Present: normal inspection, full ROM - Neurological Exam Neurological exam: Present: alert, oriented X3 - Psychiatric Psychiatric exam: Present: normal affect, normal mood - Skin Skin exam: Present: warm, dry, intact, normal color. Absent: rash ED Course Vital Signs 07/06/20 15:25 Temperature 97.9 F Pulse Rate 95 H Respiratory 18 Rate Blood Pressure 109/69 O2 Sat by Pulse 97 Oximetry ED Medical Decision Making - Medical Decision Making 55-year-old -[place] male presents to the emergency room for acute gout exacerbation of his right knee. Patient states is been going on for a #3 and reports he had eaten a pork steak and the next day he started having pain. Patient states that the pain is a 10 out of 10 and he is not able to straighten out his right knee secondary to pain. Patient reports he has been ambulating with crutches. He denies any injuries. Patient denies any fever or chills. Patient denies any fall. Patient is given colchicine 1.2 mg p.o., dexamethasone 10 mg IM, Percocet 10 mg over 625 mg and Toradol 30 mg IM. Patient be discharged home on prednisone pack indomethacin and [place]. Critical care attestation.: If time is entered above; I have spent that time in minutes in the direct care of this critically ill patient, excluding procedure time. ED Disposition Clinical Impression: Acute gout of right knee Qualifiers: Gout etiology: unspecified cause Qualified Code(s): M10.9 - Gout, unspecified Disposition: DC- TO HOME OR SELFCARE Is pt being admited?: No Does the pt Need Aspirin: No Condition: Stable Instructions: Low-Purine Eating Plan Additional Instructions: Take medications as prescribed. Do not operate heavy machinery while taking Percocet. Please follow a low purine diet. Prescriptions: Colchicine 0.6 mg PO DAILY #10 capsule predniSONE [Deltasone] 20 mg PO DAILY #5 tablet Ibuprofen [Motrin 800 MG tab] 800 mg PO Q8HR PRN #14 tablet PRN Reason: Pain, Moderate (4-6) oxyCODONE /ACETAMINOPHEN [Percocet 5/325 mg] 1 tab PO Q4H PRN #12 tablet PRN Reason: Pain , Severe (7-10) Referrals: Your,Primary Care Provider [Other] - 3-5 Days Forms: Work/School Release Form(ED)
[2020-07-06 20:31] VITALS: BP 118/76
== END 2020-07-06 20:29 | disposition home or self-care (01) ==
LOC: ED 15:14
DX: M10.9 Gout, unspecified (principal); I10 Essential (primary) hypertension; E11.9 Type 2 diabetes mellitus without complications; F41.9 Anxiety disorder, unspecified; Z79.899 Other long term (current) drug therapy; Z91.013 Allergy to seafood
CPT/HCPCS: 96372; 99283; J1100; J1885

== ENCOUNTER 2020-07-27 11:02 | Emergency (ER) | payer MEDICARE ==
[2020-07-27] MEDS ORDERED: methylPREDNISolone ACETATE 80 MG/1 ML INJ IM ONE (11:20)
--- NOTE | 2020-07-27 11:20 | Emergency Department Report ---
ED Lower Extremity HPI - General Stated Complaint: RIGHT LEG PAIN;GOUT Time Seen by Provider: 07/27/20 11:20 Source: patient - History of Present Illness Initial Comments: 55 yo AA male comes in with r knee pain no trauma a/c gout pt states this is his gout pain he has no prednisone could not get in w pcp Complaint: other -: Gradual, days(s) Injury: Knee: Right Severity: severe Improves With: nothing - Related Data Previous Rx's Medication Instructions Recorded Last Taken Type amLODIPine 10 mg PO QDAY 30 Days #30 tablet 01/14/20 Unknown Rx lisinopriL [Zestril TAB] 30 mg PO QDAY #30 tab 01/14/20 Unknown Rx Colchicine 0.6 mg PO DAILY #10 capsule 07/06/20 Unknown Rx predniSONE [Deltasone] 20 mg PO DAILY #5 tablet 07/27/20 Unknown Rx traMADoL [Ultram] 50 mg PO Q6HR PRN #10 tablet 07/27/20 Unknown Rx Allergies Allergy/AdvReac Type Severity Reaction Status Date / Time shellfish derived Allergy Rash Verified 07/27/20 11:18 ED Review of Systems ROS: Stated complaint: RIGHT LEG PAIN;GOUT Other details as noted in HPI Comment: All other systems reviewed and negative ED Past Medical Hx - Past Medical History Previous Medical History?: Yes Hx Hypertension: Yes Hx Diabetes: Yes Hx Kidney Stones: Yes Hx Psychiatric Treatment: Yes (anxiety) Additional medical history: GOUT, Chronic back pain, Loud snoring with poss sleep apnea - Surgical History Past Surgical History?: Yes Additional Surgical History: tonsillectomy - Family History Family history: no significant - Social History Smoking Status: Never Smoker Substance Use Type: None - Medications Home Medications: Home Medications Medication Instructions Recorded Confirmed Last Taken Type amLODIPine 10 mg PO QDAY 30 Days #30 tablet 01/14/20 Unknown Rx lisinopriL [Zestril TAB] 30 mg PO QDAY #30 tab 01/14/20 Unknown Rx Colchicine 0.6 mg PO DAILY #10 capsule 07/06/20 Unknown Rx predniSONE [Deltasone] 20 mg PO DAILY #5 tablet 07/27/20 Unknown Rx traMADoL [Ultram] 50 mg PO Q6HR PRN #10 tablet 07/27/20 Unknown Rx ED Physical Exam - General General appearance: alert, in no apparent distress - Head Head exam: Present: atraumatic, normocephalic - Eye Eye exam: Present: normal appearance - ENT ENT exam: Present: mucous membranes moist - Neck Neck exam: Present: normal inspection - Respiratory Respiratory exam: Present: normal lung sounds bilaterally. Absent: respiratory distress - Cardiovascular Cardiovascular Exam: Present: regular rate, normal rhythm. Absent: systolic murmur, diastolic murmur, rubs, gallop - GI/Abdominal GI/Abdominal exam: Present: soft, normal bowel sounds - Rectal Rectal exam: Present: deferred - Extremities Exam Extremities exam: Present: normal inspection - Expanded Lower Extremity Exam Right Knee exam: Present: full ROM, tenderness, swelling, erythema, effusion (small medial ), full knee extension. Absent: abrasion, laceration, ecchymosis, deformity, crepidus, dislocation, pain w/ pronation/supination, posterior draw sign Lower Leg exam: Present: normal inspection - Back Exam Back exam: Present: normal inspection - Neurological Exam Neurological exam: Present: alert, oriented X3 - Psychiatric Psychiatric exam: Present: normal affect, normal mood - Skin Skin exam: Present: warm, dry, intact, normal color. Absent: rash ED Course Vital Signs 07/27/20 11:22 Temperature 98.2 F Pulse Rate 86 Respiratory 18 Rate Blood Pressure 107/69 O2 Sat by Pulse 97 Oximetry ED Lower Extremity MDM - Medical Decision Making a/c gout depo IM dc home with ultram and prednisone; pt will see pcp in follow up Vital Signs 07/27/20 11:22 Temperature 98.2 F Pulse Rate 86 Respiratory 18 Rate Blood Pressure 107/69 O2 Sat by Pulse 97 Oximetry - Differential Diagnosis a/c gout Critical care attestation.: If time is entered above; I have spent that time in minutes in the direct care of this critically ill patient, excluding procedure time. ED Disposition Clinical Impression: Gout, Knee pain, Joint effusion Disposition: DC-01 TO HOME OR SELFCARE Is pt being admited?: No Does the pt Need Aspirin: No Condition: Stable Instructions: Low-Purine Eating Plan Additional Instructions: continue home colchicine and indocin meds as ordered today follow up with pcp next week to be sure you are getting better Prescriptions: predniSONE [Deltasone] 20 mg PO DAILY #5 tablet traMADoL [Ultram] 50 mg PO Q6HR PRN #10 tablet PRN Reason: Pain Referrals: EVELIN JIMENEZ MD [Staff Physician] - 3-5 Days Time of Disposition: 11:22
[2020-07-27 11:22] VITALS: BP 107/69
== END 2020-07-27 11:33 | disposition home or self-care (01) ==
LOC: ED 11:02
DX: M25.461 Effusion, right knee (principal); M10.9 Gout, unspecified; I10 Essential (primary) hypertension; E11.9 Type 2 diabetes mellitus without complications; F41.9 Anxiety disorder, unspecified; Z90.49 Acquired absence of other specified parts of digestive tract; Z79.899 Other long term (current) drug therapy; Z91.013 Allergy to seafood; Z87.442 Personal history of urinary calculi
CPT/HCPCS: 96372; 99282; J1040

== ENCOUNTER 2021-01-30 09:21 | Emergency (ER) | payer MEDICARE ==
[2021-01-30 10:25] VITALS: BP 127/74
[2021-01-30] MEDS ORDERED: dexAMETHasone 4 MG/ML VIAL IM STA (14:27)
[2021-01-30] MEDS ORDERED: KETOROLAC 60 MG/2 ML INJ IM ONE (14:27)
--- NOTE | 2021-01-30 14:33 | Emergency Department Report ---
ED General Adult HPI - General Chief complaint: Extremity Problem,Nontraumatic Stated complaint: LT KNEE/FOOT PAIN Time Seen by Provider: 01/30/21 12:05 Source: patient Mode of arrival: Ambulatory Limitations: No Limitations - History of Present Illness Initial comments: 55-year-old -[place] male patient presents with complaints of gout flare to the left knee and left great toe x4 days. He reports he is compliant with his allopurinol and that he ran out of his colchicine. Patient states his flare began after eating a Salsberry steak. He denies any fever/chills/sweats or difficulty moving his knee or foot/toes. He states the pain is consistent with his previous gout flares. -: Sudden Severity scale (0 -10): 10 Quality: constant - Related Data Previous Rx's Medication Instructions Recorded Last Taken Type amLODIPine 10 mg PO QDAY 30 Days #30 tablet 01/14/20 Unknown Rx lisinopriL [Zestril TAB] 30 mg PO QDAY #30 tab 01/14/20 Unknown Rx Colchicine 0.6 mg PO DAILY #10 capsule 07/06/20 Unknown Rx predniSONE [Deltasone] 20 mg PO DAILY #5 tablet 07/27/20 Unknown Rx traMADoL [Ultram] 50 mg PO Q6HR PRN #10 tablet 07/27/20 Unknown Rx Colchicine 0.6 mg PO QDAY #3 tablet 01/30/21 Unknown Rx Prednisone [predniSONE 10 mg 10 mg PO .TAPER #1 tab.ds.pk 01/30/21 Unknown Rx (6-Day Pack, 21 Tabs)] Allergies Allergy/AdvReac Type Severity Reaction Status Date / Time shellfish derived Allergy Rash Verified 07/27/20 11:18 ED Review of Systems ROS: Stated complaint: LT KNEE/FOOT PAIN Other details as noted in HPI Constitutional: denies: chills, diaphoresis, fever, malaise, weakness Musculoskeletal: joint swelling, arthralgia Neurological: denies: numbness, paresthesias ED Past Medical Hx - Past Medical History Previous Medical History?: Yes Hx Hypertension: Yes Hx Diabetes: Yes Hx Kidney Stones: Yes Hx Psychiatric Treatment: Yes (anxiety) Additional medical history: GOUT, Chronic back pain, Loud snoring with poss sleep apnea - Surgical History Past Surgical History?: Yes Additional Surgical History: tonsillectomy - Social History Smoking Status: Never Smoker Substance Use Type: None - Medications Home Medications: Home Medications Medication Instructions Recorded Confirmed Last Taken Type amLODIPine 10 mg PO QDAY 30 Days #30 tablet 01/14/20 Unknown Rx lisinopriL [Zestril TAB] 30 mg PO QDAY #30 tab 01/14/20 Unknown Rx Colchicine 0.6 mg PO DAILY #10 capsule 07/06/20 Unknown Rx predniSONE [Deltasone] 20 mg PO DAILY #5 tablet 07/27/20 Unknown Rx traMADoL [Ultram] 50 mg PO Q6HR PRN #10 tablet 07/27/20 Unknown Rx Colchicine 0.6 mg PO QDAY #3 tablet 01/30/21 Unknown Rx Prednisone [predniSONE 10 mg 10 mg PO .TAPER #1 tab.ds.pk 01/30/21 Unknown Rx (6-Day Pack, 21 Tabs)] ED Physical Exam - General Limitations: No Limitations General appearance: alert, in no apparent distress - Head Head exam: Present: atraumatic, normocephalic - Respiratory Respiratory exam: Absent: respiratory distress - Cardiovascular Cardiovascular Exam: Present: regular rate - Extremities Exam Extremities exam: Present: other (Mild swelling and mild erythema with tenderness to palpation noted to the left knee and left great toe; full range of motion of the toe and knee are noted) - Neurological Exam Neurological exam: Present: alert, oriented X3 - Psychiatric Psychiatric exam: Present: normal affect, normal mood - Skin Skin exam: Present: warm, dry, intact. Absent: rash ED Course Vital Signs 01/30/21 10:24 Temperature 97.9 F Pulse Rate 94 H Respiratory 20 Rate Blood Pressure 127/74 O2 Sat by Pulse 98 Oximetry ED Medical Decision Making - Medical Decision Making 55-year-old -[place] male patient presents with complaints of gout flare to the left knee and left great toe x4 days. He reports he is compliant with his allopurinol and that he ran out of his colchicine. Patient states his flare began after eating a Salsberry steak. He denies any fever/chills/sweats or difficulty moving his knee or foot/toes. He states the pain is consistent with his previous gout flares. History and physical are consistent with gout. Patient given Decadron and Toradol. He will DC home with colchicine. His vitals are within normal limits, he is well-appearing, he is stable for discharge home. Patient to follow-up with his primary care doctor. Strict return precautions were discussed in detail with patient who verbalizes understanding. Critical care attestation.: If time is entered above; I have spent that time in minutes in the direct care of this critically ill patient, excluding procedure time. ED Disposition Clinical Impression: Gout flare Qualifiers: Gout site: multiple sites Gout etiology: idiopathic Qualified Code(s): M10.09 - Idiopathic gout, multiple sites Disposition: TO HOME OR SELFCARE Is pt being admited?: No Condition: Stable Instructions: Low-Purine Eating Plan Prescriptions: Colchicine 0.6 mg PO QDAY #3 tablet Prednisone [predniSONE 10 mg (6-Day Pack, 21 Tabs)] 10 mg PO .TAPER #1 tab.ds.pk Referrals: PRIMARY CARE, [Referring] - 3-5 Days
== END 2021-01-30 15:20 | disposition home or self-care (01) ==
LOC: ED 09:21
DX: M10.9 Gout, unspecified (principal); I10 Essential (primary) hypertension; E11.9 Type 2 diabetes mellitus without complications; F41.9 Anxiety disorder, unspecified; M54.9 Dorsalgia, unspecified; G89.29 Other chronic pain
CPT/HCPCS: 96372; 99282; J1100; J1885

== ENCOUNTER 2021-02-16 07:38 | Observation (INO) | payer MEDICARE ==
[2021-02-16] MEDS ORDERED: diphenhydrAMINE 25 MG CAP PO ONE ×2 (08:04)
[2021-02-16] MEDS ORDERED: dexAMETHasone 4 MG/ML VIAL IM STA (08:28)
[2021-02-16] MEDS ORDERED: diphenhydrAMINE 50 MG/ML VIAL IM ONE (08:28)
[2021-02-16] MEDS ORDERED: FAMOTIDINE 20 MG TAB PO ONE (08:33)
[2021-02-16] MEDS ORDERED: predniSONE 20 MG TAB PO ONE (08:36)
--- NOTE | 2021-02-16 08:36 | Emergency Department Report ---
ED General Adult HPI - General Chief complaint: Allergic Reaction Stated complaint: I think him having an allergic reaction PUI?: No Time Seen by Provider: 02/16/21 08:26 Source: patient, RN notes reviewed, old records reviewed Mode of arrival: Ambulatory Limitations: No Limitations - History of Present Illness Initial comments: The patient was evaluated in the emergency department for symptoms described in the history of present illness. He/she was evaluated in the context of the global COVID-19 pandemic, which necessitated consideration that the patient might be at risk for infection with the virus that causes COVID-19. Institutional protocols and algorithms that pertain to the evaluation of patients at risk for COVID-19 are in a state of rapid change based on information released by regulatory bodies including the CDC and federal and state organizations. These policies and algorithms were followed during the nash mahinrosenda's care in the emergency department. Please note that these policies, procedures and recommendations changed on a rapid basis. The patient is a 55-year-old gentleman. I have evaluated this patient in the past. He was diagnosed with COVID-19 in January 2020. He also has a history of hypertension, gout and obesity. He has been on lisinopril medication for years. He presents to the ER today with a complaint of nontraumatic left tongue swelling which started at 6:00 this morning. It is constant. He denies cutaneous symptoms. He denies additional injuries or complaints. He denies sore throat, hoarse voice. He has not taken any mgls-[id number] medications. He denies additional injuries or complaints. He thinks he is having an allergic reaction. He received his first round of Covid vaccination, moderna, a few days ago. -: Sudden Location: mouth Consistency: constant Improves with: none Worsens with: none Associated Symptoms: denies other symptoms - Related Data Previous Rx's Medication Instructions Recorded Last Taken Type amLODIPine 10 mg PO QDAY 30 Days #30 tablet 01/14/20 Unknown Rx Colchicine 0.6 mg PO DAILY #10 capsule 07/06/20 Unknown Rx predniSONE [Deltasone] 20 mg PO DAILY #5 tablet 07/27/20 Unknown Rx traMADoL [Ultram] 50 mg PO Q6HR PRN #10 tablet 07/27/20 Unknown Rx Colchicine 0.6 mg PO QDAY #3 tablet 01/30/21 Unknown Rx Prednisone [predniSONE 10 mg 10 mg PO .TAPER #1 tab.ds.pk 01/30/21 Unknown Rx (6-Day Pack, 21 Tabs)] Allergies Allergy/AdvReac Type Severity Reaction Status Date / Time shellfish derived Allergy Rash Verified 02/16/21 07:42 ED Review of Systems ROS: Stated complaint: ALLERGIC REACTION Other details as noted in HPI Comment: All other systems reviewed and negative ENT: other (Left lateral tongue swelling. This is painless.) ED Past Medical Hx - Past Medical History Hx Hypertension: Yes Hx Diabetes: Yes Hx Kidney Stones: Yes Hx Psychiatric Treatment: Yes (anxiety) Additional medical history: GOUT, Chronic back pain, Loud snoring with poss sleep apnea - Surgical History Additional Surgical History: tonsillectomy - Social History Smoking Status: Never Smoker Substance Use Type: Alcohol - Medications Home Medications: Home Medications Medication Instructions Recorded Confirmed Last Taken Type amLODIPine 10 mg PO QDAY 30 Days #30 tablet 01/14/20 Unknown Rx Colchicine 0.6 mg PO DAILY #10 capsule 07/06/20 Unknown Rx predniSONE [Deltasone] 20 mg PO DAILY #5 tablet 07/27/20 Unknown Rx traMADoL [Ultram] 50 mg PO Q6HR PRN #10 tablet 07/27/20 Unknown Rx Colchicine 0.6 mg PO QDAY #3 tablet 01/30/21 Unknown Rx Prednisone [predniSONE 10 mg 10 mg PO .TAPER #1 tab.ds.pk 01/30/21 Unknown Rx (6-Day Pack, 21 Tabs)] ED Physical Exam - General Limitations: No Limitations General appearance: alert, anxious, obese - Head Head exam: Present: atraumatic, normocephalic - Eye Eye exam: Present: normal appearance, EOMI. Absent: nystagmus - ENT ENT exam: Present: normal exam, normal orophraynx, mucous membranes moist, normal external ear exam, other (There is left lateral tongue swelling. There is no stridor. There is no dysphonia.) - Neck Neck exam: Present: normal inspection, full ROM. Absent: tenderness, meningismus - Respiratory Respiratory exam: Present: normal lung sounds bilaterally. Absent: respiratory distress, wheezes, rales, rhonchi, stridor, chest wall tenderness, accessory muscle use, decreased breath sounds, prolonged expiratory - Cardiovascular Cardiovascular Exam: Present: regular rate, normal rhythm, normal heart sounds. Absent: bradycardia, tachycardia, irregular rhythm, systolic murmur, diastolic murmur, rubs, gallop - GI/Abdominal GI/Abdominal exam: Present: soft. Absent: distended, tenderness, guarding, rebound, rigid, pulsatile mass - Rectal Rectal exam: Present: deferred - Extremities Exam Extremities exam: Present: normal inspection, full ROM, other (2+ pulses noted in the bilateral upper and lower extremities. There is no palpable cord. negative Homans sign. Muscular compartments are soft. The pelvis is stable.). Absent: pedal edema, calf tenderness - Back Exam Back exam: Present: normal inspection, full ROM. Absent: tenderness, CVA tenderness (R), CVA tenderness (L), paraspinal tenderness, vertebral tenderness - Neurological Exam Neurological exam: Present: alert, oriented X3, other (No facial droop. Tongue midline. Extraocular movements intact bilaterally. Facial sensation intact to light touch in V1, V2, V3 distribution bilaterally. 5 and a 5 strength in 4 extremities. Sensation intact to light touch in 4 extremities.). Absent: motor sensory deficit - Psychiatric Psychiatric exam: Present: anxious - Skin Skin exam: Present: warm, dry, intact, normal color. Absent: rash ED Course Vital Signs 02/16/21 02/16/21 02/16/21 11:21 11:24 11:27 Temperature 98.8 F Pulse Rate 92 H Respiratory 18 Rate Blood Pressure Blood Pressure 138/81 [Right] O2 Sat by Pulse 98 97 Oximetry O2 Sat by Pulse 99 Oximetry [ Digit-Finger] 02/16/21 02/16/21 02/16/21 11:31 11:45 12:01 Temperature Pulse Rate 106 H Respiratory 21 Rate Blood Pressure 138/81 140/77 140/77 Blood Pressure [Right] O2 Sat by Pulse 97 94 96 Oximetry O2 Sat by Pulse Oximetry [ Digit-Finger] 02/16/21 02/16/21 02/16/21 12:15 12:31 12:45 Temperature Pulse Rate 96 H 97 H 97 H Respiratory 14 16 15 Rate Blood Pressure 140/77 140/77 140/77 Blood Pressure [Right] O2 Sat by Pulse 98 96 96 Oximetry O2 Sat by Pulse Oximetry [ Digit-Finger] 02/16/21 13:01 Temperature Pulse Rate 96 H Respiratory 14 Rate Blood Pressure 140/77 Blood Pressure [Right] O2 Sat by Pulse 95 Oximetry O2 Sat by Pulse Oximetry [ Digit-Finger] [facility] 02/16/21 08:59 Differential diagnosis, including but not limited to: Angioedema, MANINDER inhibitor related tongue swelling Assessment and plan: 55-year-old gentleman with left lateral tongue swelling, in the context of lisinopril use for years, 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 Place patient on sandwich counter attendant, make nothing by mouth. Medicate empirically with steroids, Pepcid, and Benadryl. Explained to patient that this is likely medication related. Explained to patient that he will need to discontinue MANINDER inhibitors. Continue to monitor patient, and reassess. Have discussed this plan of care with the patient. He has articulated understanding. All questions answered. Saturating 100% on room air at this time. 02/16/21 10:33 I have reevaluated this patient multiple times. He appears comfortable and is phonating in complete sentences. However, tongue swelling has not diminished, it appears that the right side of the tongue has slightly increased in size. I have recommended admission for airway observation. At the moment, this patient does not require intubation, positive pressure ventilation, or invasive airway management. However, given that tongue swelling has not diminished and appears to be slightly increasing, admission for airway observation and supportive care is indicated. The patient is amenable to this plan of care. Basic laboratory studies ordered, but I do not suspect that they will lend any immediately useful clinical information. We'll contact the medical service once those diagnostics have resulted. All questions answered. 02/16/21 11:27 Dr Jiang to admit to [facility] He requests 125 mg of Solu-Medrol. - EJ/Peripheral Line Neck R Time Out Performed: Yes Indications: nurses unable to establis Skin Cleansed in Sterile Fashion: Yes Size: 20 Dressing Placed: Tegaderm Patient Tolerated Procedure: well - Pulse Oximetry Interpretation Digit-Finger Initial Pulse Oximetry Readin O2 Sat by Pulse Oximetry: 99 Actions Taken: none ED Medical Decision Making - Lab Data Result diagrams: 02/16/21 11:58 02/16/21 11:58 Temperature: 98F Blood pressure: 152/92 mmHg Saturating at 100% on room air, respirations 16/min, heart rate 95 bpm. Vital Signs 02/16/21 02/16/21 10:35 11:24 Temperature 98.8 F Pulse Rate 92 H Respiratory 18 Rate Blood Pressure 138/81 [Right] O2 Sat by Pulse 97 Oximetry O2 Sat by Pulse 99 Oximetry [ Digit-Finger] Critical care attestation.: If time is entered above; I have spent that time in minutes in the direct care of this critically ill patient, excluding procedure time. ED Disposition Clinical Impression: Angioedema, MANINDER inhibitor-aggravated angioedema Disposition: 02 [facility] Is pt being admited?: Yes Does the pt Need Aspirin: No Condition: Good
[2021-02-16] MEDS ORDERED: methylPREDNISolone Sod Succinate 125 MG/2 ML INJ IV ONE (11:26)
[2021-02-16 12:03] LABS: Hemoglobin 13.1 gm/dl (11.8-15.2); Mean Corpuscular HGB Conc 34 % (32-34); Mean Corpuscular Volume 105 fl (84-94); Platelet Count 216 K/mm3 (140-440); Red Blood Count 3.62 M/mm3 (3.65-5.03); Red Cell Distribution Width 14.2 % (13.2-15.2)
[2021-02-16 12:25] LABS: BUN/Creatinine Ratio 10; Blood Urea Nitrogen 12 mg/dL (9-20); Calcium 9.8 mg/dL (8.4-10.2); Hemolysis Index 5
[2021-02-16 13:05] VITALS: BP 140/77
[2021-02-16] MEDS ORDERED: MAGNESIUM OXIDE 400 MG TAB PO STA (13:18)
[2021-02-16] MEDS ORDERED: methylPREDNISolone Sod Succinate 125 MG/2 ML INJ ONE (13:55)
--- NOTE | 2021-02-16 20:48 | Consultation ---
History of Present Illness - Reason for Consult Consult date: 02/16/21 Medical management Requesting physician: MAGALY SALGADO - History of Present Illness 54-year-old -[place] male with history of hypertension on benazepril in combination with amlodipine comes in for swelling of the tongue and lips since 6 AM. In the emergency room patient was given IV Pepcid IV steroids and IV Benadryl. At the time of my examination the swelling of the tongue and lips has become better. Patient able to talk normally. Able to swallow. No fever or chills. Patient feels a lot better since the time of admission to the emergency room. - Past Medical History Hx Hypertension: Yes Hx Diabetes: Yes Hx Kidney Stones: Yes Hx Psychiatric Treatment: Yes (anxiety) Additional medical history: GOUT, Chronic back pain, Loud snoring with poss sleep apnea - Surgical History Additional Surgical History: tonsillectomy - Social History Smoking Status: Never Smoker Substance Use Type: Alcohol - Medications Home Medications: Home Medications Medication Instructions Recorded Confirmed Last Taken Type amLODIPine 10 mg PO QDAY 30 Days #30 tablet 01/14/20 Unknown Rx Colchicine 0.6 mg PO DAILY #10 capsule 07/06/20 Unknown Rx predniSONE [Deltasone] 20 mg PO DAILY #5 tablet 07/27/20 Unknown Rx traMADoL [Ultram] 50 mg PO Q6HR PRN #10 tablet 07/27/20 Unknown Rx Colchicine 0.6 mg PO QDAY #3 tablet 01/30/21 Unknown Rx Prednisone [predniSONE 10 mg 10 mg PO .TAPER #1 tab.ds.pk 01/30/21 Unknown Rx (6-Day Pack, 21 Tabs)] Review of Systems ROS: Stated complaint: ALLERGIC REACTION Other details as noted in HPI Comment: All other systems reviewed and negative ENT: other (Left lateral tongue swelling. This is painless.) Medications and Allergies Allergies Allergy/AdvReac Type Severity Reaction Status Date / Time shellfish derived Allergy Rash Verified 02/16/21 07:42 Home Medications Medication Instructions Recorded Confirmed Last Taken Type amLODIPine 10 mg PO QDAY 30 Days #30 tablet 01/14/20 Unknown Rx Colchicine 0.6 mg PO DAILY #10 capsule 07/06/20 Unknown Rx predniSONE [Deltasone] 20 mg PO DAILY #5 tablet 07/27/20 Unknown Rx traMADoL [Ultram] 50 mg PO Q6HR PRN #10 tablet 07/27/20 Unknown Rx Colchicine 0.6 mg PO QDAY #3 tablet 01/30/21 Unknown Rx Prednisone [predniSONE 10 mg 10 mg PO .TAPER #1 tab.ds.pk 01/30/21 Unknown Rx (6-Day Pack, 21 Tabs)] Famotidine [Pepcid] 20 mg PO BID #20 tablet 02/16/21 Unknown Rx Prednisone [predniSONE 5 mg (6-Day 5 mg PO .TAPER #1 tab.ds.pk 02/16/21 Unknown Rx Pack, 21 Tabs)] carvediloL [Coreg] 12.5 mg PO BID #60 tablet 02/16/21 Unknown Rx diphenhydrAMINE [Benadryl CAP] 25 mg PO Q6HR PRN #20 capsule 02/16/21 Unknown Rx Exam - Constitutional Vitals: Temp Pulse Resp BP Pulse Ox 98.8 F 96 H 14 140/77 99 02/16/21 11:24 02/16/21 13:01 02/16/21 13:01 02/16/21 13:01 02/16/21 13:33 General appearance: Present: no acute distress, well-nourished - EENT Eyes: Present: PERRL ENT: hearing intact, clear oral mucosa, other (Swelling of the lips and tongue present but mild. No airway compromise.) - Neck Neck: Present: supple, normal ROM - Respiratory Respiratory effort: normal Respiratory: bilateral: CTA - Cardiovascular Heart Sounds: Present: S1 & S2. Absent: rub, click - Extremities Extremities: pulses symmetrical, No edema Peripheral Pulses: within normal limits - Abdominal General gastrointestinal: Present: soft, non-tender, non-distended, normal bowel sounds Male genitourinary: Present: normal - Integumentary Integumentary: Present: clear, warm, dry - Musculoskeletal Musculoskeletal: gait normal, strength equal bilaterally - Psychiatric Psychiatric: appropriate mood/affect, intact judgment & insight - Neurologic Neurologic: CNII-XII intact, moves all extremities Results - Labs CBC & Chem 7: 02/16/21 11:58 02/16/21 11:58 Labs: Abnormal lab results 02/16/21 02/16/21 Range/Units 11:58 11:58 RBC 3.62 L (3.65-5.03) M/mm3 MCV 105 H (84-94) fl MCH 36 H (28-32) pg Glucose 123 H (75-100) mg/dL Magnesium 1.20 L (1.7-2.3) mg/dL Assessment and Plan - Patient Problems (1) MANINDER inhibitor-aggravated angioedema Current Visit: Yes Status: Acute Qualifiers: Encounter type: initial encounter Qualified Code(s): T78.3XXA - Angioneurotic edema, initial encounter; T46.4X5A - Adverse effect of jvjapdsftzq-xckysddqpm-tqnnzd inhibitors, initial encounter Plan to address problem: Patient improved with IV steroids and IV Benadryl and IV Pepcid. Patient to be discharged on oral prednisone pack and Pepcid 20 mg twice a day and Benadryl 25 mg every 6 hours as needed. Patient counseled to stop less benazepril. Or any other MANINDER inhibitor's. Patient was started on Coreg 12.5 twice daily. Patient being discharged on Coreg prednisone Dosepak Benadryl and Pepcid. Prescriptions given. (2) Hypertension Current Visit: Yes Status: Chronic Qualifiers: Hypertension type: primary hypertension Qualified Code(s): I10 - Essential (primary) hypertension Plan to address problem: Patient to stop benazepril. Patient to start Coreg 12.5 every 12 and also to continue amlodipine 10 mg once a day. Follow-up with PCP. (3) Discharge planning issues Current Visit: Yes Status: Acute Plan to address problem: Patient with nearly resolved angioedema Patient does not meet the criteria for admission Patient discharged on amlodipine and Coreg Patient also discharged on prednisone pack and Benadryl and Pepcid 20 mg twice a day. Patient to follow-up with PCP. Patient discharged in the emergency room around 1730 hrs.
== END 2021-02-16 23:08 | disposition home or self-care (01) ==
LOC: ED 07:38 → 4A 11:27
PROVIDERS: ADMIT Internal Medicine; ATTEND Internal Medicine
DX: T78.3XXA Angioneurotic edema, initial encounter (principal); I10 Essential (primary) hypertension; E11.9 Type 2 diabetes mellitus without complications; F41.9 Anxiety disorder, unspecified; M10.9 Gout, unspecified; M54.9 Dorsalgia, unspecified; G89.29 Other chronic pain; Z87.442 Personal history of urinary calculi; Z79.899 Other long term (current) drug therapy; Z90.49 Acquired absence of other specified parts of digestive tract; Z98.890 Other specified postprocedural states
CPT/HCPCS: 36415; 80048; 82550; 83735; 85027; 96374; 99284; G0378; J2930; J7512

== ENCOUNTER 2021-07-23 23:25 | Emergency (ER) | payer MEDICARE ==
[2021-07-24 00:27] LABS: Bilirubin,Urine NEG (Negative); Blood,Urine NEG (Negative); Color,Urine Straw (Yellow); Mucus,Urine FEW /HPF; Protein,Urine <15 mg/dL mg/dL (Negative); Urobilinogen,Urine < 2.0 mg/dL (<2.0)
[2021-07-24] MEDS ORDERED: COLCHICINE 0.6 MG TAB PO ONE (00:31)
[2021-07-24] MEDS ORDERED: predniSONE 20 MG TAB PO ONE (00:31)
[2021-07-24] MEDS ORDERED: ONDANSETRON 4 MG ODT TAB PO ONE (00:31)
[2021-07-24] MEDS ORDERED: KETOROLAC 30 MG/1 ML INJ IM ONE (00:31)
[2021-07-24] MEDS ORDERED: HYDROcodone/ACETAMINOPHEN 5-325 MG TAB PO ONE (00:32)
[2021-07-24] MEDS ORDERED: oxyCODONE /ACETAMINOPHEN 5-325MG TAB PO ONE (00:54)
--- NOTE | 2021-07-24 01:05 | Emergency Department Report ---
ED General Adult HPI - General Chief complaint: Back Pain/Injury Stated complaint: BACK AND GOUT PAIN Source: patient Mode of arrival: Ambulatory Limitations: No Limitations - History of Present Illness Initial comments: Patient is a 56-year-old -[place] male with a history of chronic low back pain, hypertension, chronic gouty arthropathy and vag-zkhkwwn-[id number] diabetes who presented to the ED with acute exacerbation of his chronic pain characterized by severe left hand pain and swelling, typical of his gouty arthropathy flare and low back pain for the last 4 days. Patient states that the pain in his left hand worsened in the last 2 days and he decided to come to the ED for evaluation. Patient stated that he ran out of his pain medications at home, Percocet 10 mg - 325 mg tablets that he takes for his chronic low back pain. Patient also stated that he ran out of his colchicine 0.6 mg tablets at home, and that he has been out of these medications for over 2 months. Patient denies dizziness, syncope, fever, chills, cough, dysuria, urinary frequency and urgency, chest pain, heavy lifting or fall, traumatic injury, numbness and tingling or weakness of lower extremities bilaterally, chest pain, shortness of breath or headache. MD Complaint: left hand pain and swelling; low back pain -: Sudden Location: back (Lower back pain), upper extremity (Left hand pain and swelling) Radiation: non-radiation Severity scale (0 -10): 8 Quality: aching, sharp Consistency: constant Improves with: none Worsens with: movement Associated Symptoms: denies other symptoms. denies: confusion, cough, diaphoresis, fever/chills, headaches, malaise, nausea/vomiting, seizure, shortness of breath, syncope, weakness Treatments Prior to Arrival: none - Related Data Previous Rx's Medication Instructions Recorded Last Taken Type amLODIPine 10 mg PO QDAY 30 Days #30 tablet 01/14/20 Unknown Rx Colchicine 0.6 mg PO DAILY #10 capsule 07/06/20 Unknown Rx predniSONE [Deltasone] 20 mg PO DAILY #5 tablet 07/27/20 Unknown Rx traMADoL [Ultram] 50 mg PO Q6HR PRN #10 tablet 07/27/20 Unknown Rx Famotidine [Pepcid] 20 mg PO BID #20 tablet 02/16/21 Unknown Rx Prednisone [predniSONE 5 mg (6-Day 5 mg PO .TAPER #1 tab.ds.pk 02/16/21 Unknown Rx Pack, 21 Tabs)] carvediloL [Coreg] 12.5 mg PO BID #60 tablet 02/16/21 Unknown Rx diphenhydrAMINE [Benadryl CAP] 25 mg PO Q6HR PRN #20 capsule 02/16/21 Unknown Rx Colchicine 0.6 mg PO QDAY #30 tablet 07/24/21 Unknown Rx Indomethacin 50 mg PO Q8H #45 cap 07/24/21 Unknown Rx Prednisone [predniSONE 10 mg 10 mg PO .TAPER #1 tab.ds.pk 07/24/21 Unknown Rx (6-Day Pack, 21 Tabs)] Allergies Allergy/AdvReac Type Severity Reaction Status Date / Time shellfish derived Allergy Rash Verified 02/16/21 07:42 ED Review of Systems ROS: Stated complaint: BACK AND GOUT PAIN Other details as noted in HPI Constitutional: denies: chills, fever Eyes: denies: eye pain, eye discharge, vision change ENT: denies: ear pain, throat pain Respiratory: denies: cough, shortness of breath, wheezing Cardiovascular: denies: chest pain, palpitations Endocrine: no symptoms reported Gastrointestinal: denies: abdominal pain, nausea, diarrhea Genitourinary: denies: urgency, dysuria Musculoskeletal: back pain (Low back pain), joint swelling (Left hand pain and swelling), arthralgia (Left hand pain and swelling) Skin: denies: rash, lesions Neurological: denies: headache, weakness, paresthesias Psychiatric: denies: anxiety, depression Hematological/Lymphatic: denies: easy bleeding, easy bruising ED Past Medical Hx - Past Medical History Previous Medical History?: Yes Hx Hypertension: Yes Hx Diabetes: Yes Hx Kidney Stones: Yes Hx Psychiatric Treatment: Yes (anxiety) Additional medical history: GOUT, Chronic back pain, Loud snoring with poss sleep apnea - Surgical History Past Surgical History?: Yes Additional Surgical History: tonsillectomy - Social History Smoking Status: Never Smoker Substance Use Type: None - Medications Home Medications: Home Medications Medication Instructions Recorded Confirmed Last Taken Type amLODIPine 10 mg PO QDAY 30 Days #30 tablet 01/14/20 Unknown Rx Colchicine 0.6 mg PO DAILY #10 capsule 07/06/20 Unknown Rx predniSONE [Deltasone] 20 mg PO DAILY #5 tablet 01/20/21 Unknown Rx traMADoL [Ultram] 50 mg PO Q6HR PRN #10 tablet 07/27/20 Unknown Rx Famotidine [Pepcid] 20 mg PO BID #20 tablet 02/16/21 Unknown Rx Prednisone [predniSONE 5 mg (6-Day 5 mg PO .TAPER #1 tab.ds.pk 02/16/21 Unknown Rx Pack, 21 Tabs)] carvediloL [Coreg] 12.5 mg PO BID #60 tablet 02/16/21 Unknown Rx diphenhydrAMINE [Benadryl CAP] 25 mg PO Q6HR PRN #20 capsule 02/16/21 Unknown Rx Colchicine 0.6 mg PO QDAY #30 tablet 07/24/21 Unknown Rx Indomethacin 50 mg PO Q8H #45 cap 07/24/21 Unknown Rx Prednisone [predniSONE 10 mg 10 mg PO .TAPER #1 tab.ds.pk 07/24/21 Unknown Rx (6-Day Pack, 21 Tabs)] ED Physical Exam - General Limitations: No Limitations General appearance: alert, in no apparent distress - Head Head exam: Present: atraumatic, normocephalic, normal inspection - Eye Eye exam: Present: normal appearance, PERRL, EOMI Pupils: Present: normal accommodation - ENT ENT exam: Present: normal exam, normal orophraynx, mucous membranes moist, TM's normal bilaterally, normal external ear exam - Neck Neck exam: Present: normal inspection, full ROM - Respiratory Respiratory exam: Present: normal lung sounds bilaterally. Absent: respiratory distress, wheezes, rales, rhonchi, chest wall tenderness, accessory muscle use, decreased breath sounds, prolonged expiratory - Cardiovascular Cardiovascular Exam: Present: regular rate, normal rhythm, normal heart sounds. Absent: systolic murmur, diastolic murmur, rubs, gallop - GI/Abdominal GI/Abdominal exam: Present: soft, normal bowel sounds. Absent: tenderness, guarding, rebound, hyperactive bowel sounds, hypoactive bowel sounds, organomegaly - Extremities Exam Extremities exam: Present: normal inspection, full ROM, tenderness (Palpable left hand tenderness with swelling ), normal capillary refill, joint swelling. Absent: pedal edema, calf tenderness - Back Exam Back exam: Present: normal inspection, full ROM, tenderness (Palpable lumbosacral paraspinal musculoskeletal tenderness), muscle spasm, paraspinal tenderness. Absent: CVA tenderness (R), CVA tenderness (L), vertebral tenderness - Neurological Exam Neurological exam: Present: alert, oriented X3, CN II-XII intact, normal gait, reflexes normal - Psychiatric Psychiatric exam: Present: normal affect, normal mood - Skin Skin exam: Present: warm, dry, intact, normal color. Absent: rash ED Course Vital Signs 07/23/21 07/24/21 07/24/21 23:33 00:57 01:01 Temperature 98.9 F Pulse Rate 95 H Respiratory 18 16 16 Rate Blood Pressure 115/75 O2 Sat by Pulse 96 Oximetry 07/24/21 01:06 Temperature Pulse Rate Respiratory 16 Rate Blood Pressure O2 Sat by Pulse Oximetry ED Medical Decision Making - Medical Decision Making This is a 56-year-old -[place] male with a history of chronic low back pain, hypertension, chronic gouty arthropathy and fag-zqkebzr-czoijgmia diabetes who presented to the ED with acute exacerbation of his chronic pain characterized by severe left hand pain and swelling, typical of his gouty arthropathy flare and low back pain for the last 4 days. Patient states that the pain in his left hand worsened in the last 2 days and he decided to come to the ED for evaluation. Patient stated that he ran out of his pain medications at home, Percocet 10 mg - 325 mg tablets that he takes for his chronic low back pain. Patient also stated that he ran out of his colchicine 0.6 mg tablets at home, and that he has been out of these medications for over 2 months. In the ED, patient is alert and oriented x3 and is not in distress. Patient was treated for pain in the ED and on reevaluation, patient's pain is well controlled medication. Patient was discharged home on medications for pain and advised to follow-up with his primary care physician in 5 to 7 days for reevaluation. Patient was advised return to the ED immediately if symptoms get worse. - Differential Diagnosis Gouty arthropathy; osteoarthritis; muscle spasm; UTI; muscle strain Critical care attestation.: If time is entered above; I have spent that time in minutes in the direct care of this critically ill patient, excluding procedure time. ED Disposition Clinical Impression: Chronic gouty arthropathy, Spasm of muscle of lower back, Acute exacerbation of chronic low back pain Disposition: HOME / SELF CARE / HOMELESS Is pt being admited?: No Does the pt Need Aspirin: No Condition: Stable Instructions: Low-Purine Eating Plan, Muscle Cramps and Spasms, [id number], Chronic Back Pain, [id number] Additional Instructions: Take medication with food, drink plenty of fluids and follow-up with your primary care physician in 7 to 10 days for evaluation. Return to the ED immediately if symptoms get worse. Prescriptions: Colchicine 0.6 mg PO QDAY #30 tablet Indomethacin 50 mg PO Q8H #45 cap Prednisone [predniSONE 10 mg (6-Day Pack, 21 Tabs)] 10 mg PO .TAPER #1 tab.ds.pk Referrals: [facility] [Provider Group] - 7-10 days Time of Disposition: 01:07 Print Language: SRI LANKAN
[2021-07-24 02:41] VITALS: BP 110/70
== END 2021-07-24 02:41 | disposition home or self-care (01) ==
LOC: ED 23:25
DX: M1A.9XX0 Chronic gout, unspecified, without tophus (tophi) (principal); M62.830 Muscle spasm of back; M54.50 Low back pain, unspecified; I10 Essential (primary) hypertension; Z91.013 Allergy to seafood; E11.9 Type 2 diabetes mellitus without complications; F41.9 Anxiety disorder, unspecified
CPT/HCPCS: 81001; 96372; 99283; J1885; J7512; J3490; Q0162

== ENCOUNTER 2021-11-07 05:06 | Emergency (ER) | payer MEDICARE ==
[2021-11-07 05:46] VITALS: BP 128/82
[2021-11-07] MEDS ORDERED: dexAMETHasone 4 MG/ML VIAL IM ONE (08:39)
[2021-11-07] MEDS ORDERED: IBUPROFEN 800 MG TAB PO ONE (08:40)
[2021-11-07] MEDS ORDERED: HYDROcodone/ACETAMINOPHEN 5-325 MG TAB PO ONE (08:40)
--- NOTE | 2021-11-07 08:41 | Emergency Department Report ---
ED General Adult HPI - General Chief complaint: Pain General Stated complaint: RT KNEE GOUT PAIN PUI?: No Time Seen by Provider: 11/07/21 08:14 Source: patient Mode of arrival: Ambulatory Limitations: No Limitations - History of Present Illness Initial comments: Patient is a 56-year-old male that comes to the ER with bilateral knee pain. He has bilateral chronic knee pain. He is being worked up for bilateral knee replacements. He reports that the pain is worse on his right knee. He denies fall. He states that this pain is consistent with his gout pain. Patient ran out of his prednisone. Patient is ambulatory to the ER. He is neurologically intact. He denies chest pain or shortness of breath. He denies fever or chills. He denies any trauma/fall, MVC. -: Gradual, days(s) Location: lower extremity Severity scale (0 -10): 10 Quality: constant Consistency: constant Improves with: none Worsens with: none Associated Symptoms: denies other symptoms Treatments Prior to Arrival: none - Related Data Home Medications Medication Instructions Recorded Confirmed Last Taken Gabapentin 600 mg PO QDAY 11/07/21 11/07/21 1 Day Ago ~11/06/21 Ibuprofen 800 mg PO BID 11/07/21 11/07/21 1 Day Ago ~11/06/21 Lisinopril 20 mg PO QDAY 11/07/21 11/07/21 1 Day Ago ~11/06/21 Percocet 10/325 mg 10 mg PO Q8HR 11/07/21 11/07/21 1 Day Ago ~11/06/21 Previous Rx's Medication Instructions Recorded Last Taken Type amLODIPine 10 mg PO QDAY 30 Days #30 tablet 01/14/20 1 Day Ago Rx ~11/06/21 carvediloL [Coreg] 12.5 mg PO BID #60 tablet 02/16/21 1 Day Ago Rx ~11/06/21 Colchicine 0.6 mg PO QDAY #30 tablet 11/07/21 Unknown Rx Ibuprofen [Motrin] 800 mg PO Q8HR PRN #30 tablet 11/07/21 Unknown Rx predniSONE [Deltasone] 20 mg PO DAILY #5 tablet 11/07/21 Unknown Rx Allergies Allergy/AdvReac Type Severity Reaction Status Date / Time shellfish derived Allergy Rash Verified 11/07/21 08:25 ED Review of Systems ROS: Stated complaint: RT KNEE GOUT PAIN Other details as noted in HPI Comment: All other systems reviewed and negative ED Past Medical Hx - Past Medical History Previous Medical History?: Yes Hx Hypertension: Yes Hx Diabetes: Yes Hx Kidney Stones: Yes Hx Psychiatric Treatment: Yes (anxiety) Additional medical history: GOUT, Chronic back pain, Loud snoring with poss sleep apnea - Surgical History Past Surgical History?: Yes Additional Surgical History: tonsillectomy - Family History Family history: no significant - Social History Smoking Status: Never Smoker Substance Use Type: None - Medications Home Medications: Home Medications Medication Instructions Recorded Confirmed Last Taken Type amLODIPine 10 mg PO QDAY 30 Days #30 tablet 01/14/20 11/07/21 1 Day Ago Rx ~11/06/21 carvediloL [Coreg] 12.5 mg PO BID #60 tablet 02/16/21 11/07/21 1 Day Ago Rx ~11/06/21 Colchicine 0.6 mg PO QDAY #30 tablet 11/07/21 Unknown Rx Gabapentin 600 mg PO QDAY 11/07/21 11/07/21 1 Day Ago History ~11/06/21 Ibuprofen 800 mg PO BID 11/07/21 11/07/21 1 Day Ago History ~11/06/21 Ibuprofen [Motrin] 800 mg PO Q8HR PRN #30 tablet 11/07/21 Unknown Rx Lisinopril 20 mg PO QDAY 11/07/21 11/07/21 1 Day Ago History ~11/06/21 Percocet 10/325 mg 10 mg PO Q8HR 11/07/21 11/07/21 1 Day Ago History ~11/06/21 predniSONE [Deltasone] 20 mg PO DAILY #5 tablet 11/07/21 Unknown Rx ED Physical Exam - General Limitations: No Limitations General appearance: alert, in no apparent distress - Head Head exam: Present: atraumatic, normocephalic - Eye Eye exam: Present: normal appearance - ENT ENT exam: Present: mucous membranes moist - Neck Neck exam: Present: normal inspection - Respiratory Respiratory exam: Present: normal lung sounds bilaterally. Absent: respiratory distress - Cardiovascular Cardiovascular Exam: Present: regular rate, normal rhythm. Absent: systolic murmur, diastolic murmur, rubs, gallop - GI/Abdominal GI/Abdominal exam: Present: soft, normal bowel sounds - Rectal Rectal exam: Present: deferred - Extremities Exam Extremities exam: Present: normal inspection - Back Exam Back exam: Present: normal inspection - Neurological Exam Neurological exam: Present: alert, oriented X3 - Psychiatric Psychiatric exam: Present: normal affect, normal mood - Skin Skin exam: Present: warm, dry, intact, normal color. Absent: rash ED Course Vital Signs 11/07/21 11/07/21 11/07/21 05:45 08:54 10:14 Temperature 98.0 F 98 F Pulse Rate 100 H 78 Respiratory 16 16 16 Rate Blood Pressure 128/82 Blood Pressure 128/82 [Right] O2 Sat by Pulse 97 98 Oximetry ED Medical Decision Making - Medical Decision Making Vital Signs 11/07/21 11/07/21 11/07/21 05:45 08:54 10:14 Temperature 98.0 F 98 F Pulse Rate 100 H 78 Respiratory 16 16 16 Rate Blood Pressure 128/82 Blood Pressure 128/82 [Right] O2 Sat by Pulse 97 98 Oximetry Patient has acute on chronic gout. He was medicated for pain in the ER. Patient being discharged home with discharge plan of care including diet, activity, medications and follow-up. He verbalizes understanding of plan of care. On discharge patient is ambulatory, nontoxic [id number] and taking p.o. - Differential Diagnosis Acute on chronic gout Critical care attestation.: If time is entered above; I have spent that time in minutes in the direct care of this critically ill patient, excluding procedure time. ED Disposition Clinical Impression: Gout Qualifiers: Gout site: knee Encounter type: initial encounter Chronicity: acute Laterality: unspecified laterality Disposition: HOME / SELF CARE / HOMELESS Is pt being admited?: No Does the pt Need Aspirin: No Condition: Stable Instructions: Low-Purine Eating Plan Additional Instructions: Medication as ordered today See attached information on diet Avoid alcohol and red meats Follow-up with PCP in 48 hours referral below Prescriptions: Colchicine 0.6 mg PO QDAY #30 tablet predniSONE [Deltasone] 20 mg PO DAILY #5 tablet Ibuprofen [Motrin] 800 mg PO Q8HR PRN #30 tablet PRN Reason: Pain, Moderate (4-6) Referrals: EVELIN JIMENEZ MD [Staff Physician] - 3-5 Days Time of Disposition: 09:59
== END 2021-11-07 10:14 | disposition home or self-care (01) ==
LOC: ED 05:06
DX: M10.9 Gout, unspecified (principal); Z91.013 Allergy to seafood; I10 Essential (primary) hypertension; E11.8 Type 2 diabetes mellitus with unspecified complications
CPT/HCPCS: 96372; 99282; J1100